=== PATIENT | male | born 1950 | race Caucasian/White ===

== ENCOUNTER 2023-11-25 17:49 | Inpatient (IN) | payer MEDICARE, OTHER, SELFPAY ==
[2023-11-25] VITALS (8 sets, daily range): BP systolic 87–122; BP diastolic 47–74; BMI 41.3; BMI 41.1
--- NOTE | 2023-11-25 15:50 | ED.GENMED ---
History of Present Illness
General
Chief Complaint: Weakness
Source: patient
Exam Limitations: none
Time Seen by Provider: 11/25/23 15:20
Travel History
Have you had any contact with someone who has COVID-19?: No
Do you have any symptoms of coronavirus? Fever > 100 degrees, chills, cough, shortness of breath, sore throat, loss of taste or smell, muscle aches, or headache?: No
History of Present Illness
History of Present Illness:
73-year-old male presents with generalized weakness. This started today. No associated chills as well. His stated he was confused today. He was in the bathroom and could not get out of the bathroom because he was weak. He has a history of
atrial fibrillation on Eliquis. notes a red and swollen right leg. He has not missed any doses of the Eliquis. No chest pain or shortness of breath. No cough. No known sick contacts. He denies headache or abdominal pain. No nausea or
vomiting. No other complaints at this time
Past History
Past History
ED Past Medical History: Arrthythmia (Atrial fibrillation), CAD, GERD, HTN, Hypercholesterolemia, NIDDM and Other (Sleep apnea with CPAP, obesity)
ED Past Surgical History: Cardiac (Angioplasty), Orthopedic (Bilateral knees replaced) and Other (Lap band)
Social History
Tobacco: Non-smoker
Alcohol: Occasional
Drug: None
Personal:
Living: with family
Employment: Employed
Family History
Family History: Negative Early CAD or Sudden
Phy Exam
Physical Exam
Physical Exam:
General: Well-developed male no acute respiratory distress
HEENT: Normocephalic atraumatic mucosa dry neck is supple
Heart: Regular rate and rhythm
Lungs: No wheeze or Rales
Abdomen is soft nontender nondistended no guarding rebound normal bowel sounds
Skin: Erythema and excessive warmth from the right lower extremity underlying edema is noted no open wounds
Neurologic exam: Alert and oriented x 3 no facial asymmetry falls asleep during exam but arouses to verbal stimuli
Course
Orders/Labs/Results
Orders:
Orders
11/25/23 15:42
0.9% Sodium Chloride 1000 ml [Nss] 1,000 ml IV BOLUS
Acetaminophen [Tylenol] 1,000 mg PO NOW STA
11/25/23 16:11
COVID-19 Antigen Urgent
Source: Nasal Swab
Complete Blood Count/With Diff Urgent
Comprehensive Metabolic Panel Urgent
Lactic Acid Q4H
Comment: CANCEL 2nd LACTIC ACID IF 1st LACTIC ACID IS LESS THAN 2
Blood Culture Q30M
CARLYN Source: Blood/Venous
Specimen Description:
Influenza A+B Rapid Molecular Urgent
CARLYN Source: Nasal Swab
Specimen Description:
11/25/23 16:15
Blood Culture Q30M
CARLYN Source: Blood/Venous
Specimen Description:
11/25/23 17:31
CeFAZolin 2 GRAM [Ancef] 2 grams in 10 ml IV NOW
11/25/23 19:45
Lactic Acid Q4H
Comment: CANCEL 2nd LACTIC ACID IF 1st LACTIC ACID IS LESS THAN 2
Abnormal Lab Results
11/25/23
16:11
WBC 15.6 H 10^3/uL
(4.8-10.8)
RBC 4.49 L 10^6/uL
(4.70-6.10)
RDW 14.7 H %
(11.5-14.5)
Abs Immat Gran (auto) 0.1 H 10^3/uL
(0-0.05)
Absolute Neuts (auto) 14.5 H 10^3/uL
(1.4-6.5)
Absolute Lymphs (auto) 0.5 L 10^3/uL
(1.2-3.4)
Immature Gran % 0.6 H %
(0-0.5)
Neutrophils % 92.6 H %
(42.2-75.2)
Lymphocytes % 3.2 L %
(20.5-51.1)
BUN 22 H mg/dl
(9-20)
Glucose 137 H mg/dl
(70-99)
Lactic Acid 2.2 H mmol/L
(0.7-2.0)
Calcium 8.1 L mg/dl
(8.4-10.2)
11/25/23 16:11
11/25/23 16:11
Vital Signs
Initial and Last Documented VS:
Initial Vital Signs
Temp Pulse Resp BP Pulse Ox
98.2 F 62 18 122/60 97
11/25/23 13:53 11/25/23 13:53 11/25/23 13:53 11/25/23 13:53 11/25/23 13:53
Last Documented Vital Signs
Temp Pulse Resp BP Pulse Ox
101.9 F H 106 21 104/61 96
11/25/23 15:43 11/25/23 17:00 11/25/23 17:00 11/25/23 17:00 11/25/23 16:45
MDM/Problems Addressed
Differential Diagnosis Includes:
Recheck temperature in room. Temperature is 101.9. Exam most consistent with cellulitis. Do not suspect DVT as patient is anticoagulated. Will initiate septic workup labs cultures flu and COVID test. Fluids ordered Tylenol ordered
*Critical Care Note
Total Time (30-74mins, 75-104mins- exclusive of procedures): Not Applicable
Update Note
Update Note:
White blood cell count 15.6. Suspect sepsis secondary to cellulitis. Will start Ancef and give fluids. Admit to hospital
ED Attending Note
-
Portions of this chart may have been created with voice recognition software.� Occasional wrong word or��sound alike� substitutions may have occurred due to the inherent limitations of voice recognition software.
Discharge Plan
Departure
Patient Disposition: Admit
Date of Disposition: 11/25/23
Time of Disposition: 17:32
Admit to: Telemetry
Presentation/result/management discussed w/ accepting MD/DO: Hospitalist
Discharge Problem:
Cellulitis
Prescriptions:
No Action
furosemide 40 MG tablet
40 mg PO BID
rosuvastatin [Crestor] 20 MG tablet
20 mg PO QPM
cyanocobalamin (vitamin B-12) 1,000 MCG tablet
1,000 mcg PO MOWEFR
omeprazole 40 MG capsule,delayed release(DR/EC)
40 mg PO BID
sotalol 80 MG tablet
80 mg PO BID Qty: 60 5RF
Eliquis 5 MG tablet
5 mg PO BID 0RF
ferrous sulfate [iron] 325 mg (65 mg iron) Tablet
65 mg PO DAILY
gabapentin 300 mg Capsule
300 mg PO BID
metoprolol tartrate 25 mg Tablet
25 mg PO BID
potassium chloride 20 mEq Tablet Extended Release
20 meq PO DAILY
levothyroxine 137 mcg Tablet
125 mcg PO DAILY
gabapentin 100 mg Capsule
100 mg PO BID
calcium carbonate-vitamin D3 600 mg-5 mcg (200 unit) Tablet
2 tab PO TID
multivitamin Tablet,Chewable
3 tab PO DAILY
Beano 400 unit Tablet
400 unit PO 6XD PRN (Reason: GAS)
Creon 6,000-19,000 -30,000 unit Capsule,Delayed Release(Dr/Ec)
1 cap PO BID
Referrals:
Sharla Santos MD [Family Provider] -
Interventions
Interventions:
*Risk Screen - Suicide Last Done: 11/25/23 15:52
*General Assessment Last Done: 11/25/23 15:52
*Neglect/Abuse Screening Last Done: 11/25/23 15:52
ED- Fall Risk Assessment Last Done: 11/25/23 15:52
*ED COVID-19 Vaccine History Last Done: 11/25/23 15:52
ED- Cardiac Assessment Last Done: 11/25/23 15:52
ED- Neurological Assessment Last Done: 11/25/23 15:52
ED- Pulmonary Assessment Last Done: 11/25/23 15:52
[2023-11-25] MEDS: NSS 1000 IV ×2 (16:17→19:46)
[2023-11-25] MEDS: TYLENOL 1000 MG PO (16:17)
[2023-11-25 16:32] LABS: % Basophils 0.3 % (0-2); % Immature Granulocytes 0.6 % (0-0.5); % Lymphocytes 3.2 % (20.5-51.1); % Monocytes 3.3 % (1.7-9.3); % Neutrophils 92.6 % (42.2-75.2); Absolute Immature Granulocytes 0.1 10^3/uL (0-0.05); Absolute Lymphocytes 0.5 10^3/uL (1.2-3.4); Absolute Monocytes 0.5 10^3/uL (0.1-0.6); Absolute Neutrophils 14.5 10^3/uL (1.4-6.5); Hematocrit 40.7 % (39.0-52.0); Hemoglobin 13.6 g/dL (13.0-18.0); Mean Corp Hgb Conc. 33.4 g/dL (33.0-37.0); Mean Corpuscular Hgb 30.3 pg (27.0-31.0); Mean Corpuscular Volume 90.6 fL (80.0-94.0); Mean Platelet Volume 10.1 fL (7.4-10.4); Nucleated Red Blood Cells % 0 % (-); Platelet Count 155 10^3/uL (130-400); Red Blood Cell Count 4.49 10^6/uL (4.70-6.10); Red Cell Dist. Width 14.7 % (11.5-14.5); White Blood Cell Count 15.6 10^3/uL (4.8-10.8)
[2023-11-25 16:42] LABS: Lactic Acid 2.2 mmol/L (0.7-2.0)
[2023-11-25 16:44] LABS: COVID-19 Antigen Negative (Negative)
[2023-11-25 16:49] LABS: ALT (SGPT) 46 U/L (0-50); AST (SGOT) 48 U/L (17-59); Alkaline Phosphatase 81 U/L (38-126); Blood Urea Nitrogen 22 mg/dl (9-20); Calcium 8.1 mg/dl (8.4-10.2); Carbon Dioxide 30 mmol/L (22-30); Estimated Creatinine Clearance 72 ml/min; Glucose 137 mg/dl (70-99); Total Bilirubin 1.2 mg/dl (0.2-1.3); Total Protein 7.7 g/dl (6.3-8.2); eGFR > 60.00
[2023-11-25 16:56] LABS: Chloride 99 mmol/L (98-107); Potassium 3.7 mmol/L (3.5-5.1); Sodium 140 mmol/L (135-145)
--- NOTE | 2023-11-25 17:36 | HPS.HSE ---
Family Physician
-
Family Physician: Sharla Santos
Chief Complaint
-
Weakness at home for 1 day duration
History of Present Illness
73 years old male presented to the emergency room with generalized weakness. History is limited as patient was weak and lethargic. Patient reported that he went to the bathroom this morning and could not go back to his room. He felt very weak and
tired. Patient denied cough, dysuria, abdominal pain or headache. In the emergency room, he had fever 101.9. Right leg was noticeably swollen and red. Patient denied tenderness upon examination but mentioned that leg looked swollen to the
emergency physician. White blood cell was 15.6. Lactic acid was elevated at 2.2. No hypotension.
Patient denied chest pain.
Medical History
Past Medical History
Past Medical History: Reports Other (Hypertension, obesity, diabetes, hypothyroidism, paroxysmal A-fib, bradycardia, GERD, obstructive sleep apnea, anemia, history of recurrent cellulitis, coronary artery disease, kidney stones,, Gonzalez's esophagus)
Past Surgical History: Reports Other (No recent major surgery)
Social History
Tobacco: Non-smoker
Alcohol: None
Drug: None
Personal:
Living: With Family
Employment: Employed ([employer])
Family History
Family History: Not pertinent
Allergies / Home Medications
Allergies reflects when Allergies were last updated in [employer].
Home Medications with original date entered in [employer]
Allergy/Medication List:
Allergies
Allergy/AdvReac Type Severity Reaction Status Date / Time
aluminum Allergy Rash Verified 11/25/23 13:53
Home Medications
furosemide 40 mg tablet 40 mg PO BID Fluid retention/Swelling 09/12/18
rosuvastatin 20 mg tablet (Crestor) 20 mg PO QPM High cholesterol 11/06/18
cyanocobalamin (vitamin B-12) 1,000 mcg tablet 1,000 mcg PO MOWEFR Supplement 07/23/20
omeprazole 40 mg capsule,delayed release 40 mg PO BID Gastrointestinal issue 07/24/20
apixaban 5 mg tablet (Eliquis) 5 mg PO BID 07/26/20
sotalol 80 mg tablet 80 mg PO BID #60 tabs 07/26/20
ferrous sulfate 325 mg (65 mg iron) tablet (iron) 65 mg PO DAILY 06/25/22
metoprolol tartrate 25 mg tablet 25 mg PO BID 06/25/22
potassium chloride 20 mEq tablet,extended release 20 meq PO DAILY 06/25/22
lwzkk-u-donqwdutfurnc 400 unit tablet (Beano) 400 unit PO 6XD PRN GAS 08/17/22
levothyroxine 137 mcg tablet 125 mcg PO DAILY 08/17/22
Calcium + Vitamin D 6 gummy PO BID 11/25/23
gabapentin 400 mg capsule 400 mg PO TID 11/25/23
riwanw-cetsahdr-pdtpdwz 12,000-38,000-60,000 unit capsule,delayed rel (Creon) 1 cap PO TID 11/25/23
multivitamin 3 tab PO DAILY 11/25/23
vitamin E 1 tab PO BID 11/25/23
Review of Systems
-
History Source: Patient
A 12 point ROS was completed and negative except as noted: Yes
Constitutional: Reports Fatigue; Denies Night Sweats
EENT: Denies Sore Throat
Respiratory: Denies Cough or Trouble Breathing
Cardiac: Denies Chest Pain or Palpitations
Abdomen/GI: Denies Abdominal Pain, Diarrhea or Bloody Stools
: Denies Dysuria, Frequency or Difficulty Voiding
Musculoskeletal: Denies Joint Pain or Joint Swelling
Skin: Denies Itching or Rash
Neurological: Denies Headache or Numbness
Endocrine: Denies Temp Intolerance
Hematologic/Lymphatic: Denies Bruising
Psych: Denies Panic Disorder
Physical Exam
Vital Signs
Vital Signs
Temp Pulse Resp BP Pulse Ox
101.9 F H 106 21 104/61 96
11/25/23 15:43 11/25/23 17:00 11/25/23 17:00 11/25/23 17:00 11/25/23 16:45
Physical Exam
General: No Apparent Distress, Obese and Other (Lethargic)
HEENT: Moist mucous membranes, Atraumatic and [place] Conjunctivae
Respiratory: Clear; No Wheezes
Cardiac: S1/S2 and Regular Rhythm
GI: Soft and Non Tender
Rectal: No Maroon Stools
Genito-urinary: No costovertebral tender
Musculoskeletal: Other (Right lower extremity swelling with erythema)
Skin: No Jaundice
Neuro: Awake and AO x 3; No Slurred Speech, Facial Droop or Tremors
Psych: No Agitated
Laboratory Results
-
11/25/23 16:11
11/25/23 16:11
Laboratory Results
Lactic Acid 2.2 mmol/L (0.7-2.0) H 11/25/23 16:11
Total Bilirubin 1.2 mg/dl (0.2-1.3) 11/25/23 16:11
AST 48 U/L (17-59) 11/25/23 16:11
ALT 46 U/L (0-50) 11/25/23 16:11
Alkaline Phosphatase 81 U/L (38-126) 11/25/23 16:11
Impression/Plan
-
73 years old male presented with weakness and was found to have fever and leukocytosis with lactic acidosis
# Sepsis, present on admission
No hypotension. Patient has fever, leukocytosis, lactic acidosis and encephalopathy
Differential diagnoses include right leg cellulitis, urinary tract infection, others
Admit the patient to the hospital
Blood culture x 2
Urinalysis and urine culture
Chest x-ray
Patient denied dysuria, respiratory symptoms, sinus pain, headache, abdominal pain, diarrhea.
Patient reported that right leg looked swollen and red as baseline but per it looked not normal. Patient seems to be lethargic and encephalopathic from fever, and can be not very oriented to himself at this point.
Will treat with empiric antibiotic including cefepime and vancomycin
MRSA screen
Trend lactic acid
Trend CBC
Monitor temperature curve and vital signs
# Toxic metabolic encephalopathy secondary to sepsis/fever.
Patient is not focal on exam although he is lethargic and slow
Monitor and continue with supportive care, treat the infection.
# History of coronary artery disease. No chest pain. No shortness of breath.
#Paroxysmal A-fib, right bundle branch block. No palpitations. Will continue with Eliquis. Will verify home medications
#Hypothyroidism, no changes intended
#Primary hypertension. Avoid hypotension. Will give mild IV fluid until fever resolves.
#Gastroesophageal reflux disease/Gonzalez's esophagus without dysplasia. Will continue with PPI.
#Obesity, status post bariatric surgery in the past. BMI 41.
# CODE STATUS, full code
Total time spent to see the patient, examine the patient on the floor, review data and lab results, discuss treatment plan with patient, ER doctor and nursing staff around 75 minutes
[2023-11-25] MEDS: ANCEF 10 IV (18:02)
[2023-11-25 19:50] LABS: Lactic Acid 2.4 mmol/L (0.7-2.0)
--- NOTE | 2023-11-25 20:02 | PHA.VAN.IN ---
Assessment
- Assessment
Renal Function: Appears similar to baseline
Concomitant Antimicrobials: CEFEPIME
- Previous Dosing Experience
Previous Regimen: 1250MG IV Q12H
Date of Regimen: 11/07/18
Provided Trough of: UNKNOWN
Provided AUC of: UNKNOWN
Patient's SCR is: Similar to previous dosing experience
Patient's weight is: Decreased compared to previous dosing experience (11/07/18 WT = 134 KG)
AUC Dosing Plan
- Dosing Variables
Dosing Weight (kg): 104.1
Dosing CrCl (ml/min): 72
Vd coefficient (L/kg): 0.5
- Empiric Dosing
Initial / Loading Dose: 2GM
Maintenance Regimen: 750MG IV Q12H
Estimated AUC (mcg*h/mL): 464
Estimated Peak (mcg*h/mL): 26.9
Estimated Trough (mcg/ml): 13.3
Estimated Half Life (H): 10.8
Pharmacokinetics Vancomycin I
- -
Patient Age: 73
Patient Sex: Male
Vancomycin Day #: 1
Indication: Skin And Soft Tissue (SEPSIS)
Requesting Provider: GABRIELLE
Height / Weight:
Height 5 ft 2.5 in
Actual Weight 104.1 kg
Pertinent Past Medical History: SWOLLEN LEGS
- Vital Signs / Lab Results
Temp Pulse Resp BP Pulse Ox
98.4 F 92 19 98/51 96
11/25/23 18:03 11/25/23 18:00 11/25/23 18:00 11/25/23 18:18 11/25/23 16:45
Lab Results - Hematology
11/25/23
16:11
WBC 15.6 H
Lab Results - Chemistry
11/25/23
16:11
BUN 22 H
Creatinine 1.0
Estimated Creat Clear 72
Albumin 4.0
11/25/23 11/25/23
16:11 19:33
Lactic Acid 2.2 H 2.4 H
Microbiology Results
11/25/23 16:11 Influenza Types A & B (ALEKSANDRA) - Final
Nasal Swab Negative for Influenza A & B, NAAT
Negative results must be combined with clinical observations
and patient history.
Nucleic Acid Amplification test (NAAT)performed on the
[employer] platform.
[2023-11-25] MEDS: ELIQUIS 5 MG PO (21:03)
[2023-11-25] MEDS: VANCOCIN 540 MG IV (21:04)
[2023-11-25] MEDS: BETAPACE 80 MG PO (21:21)
--- NOTE | 2023-11-25 21:30 | PTCARENOTE ---
Received patient from ED via stretcher. Patient ambulated from stretcher to bed with assistance and RW. Patient drowsy and falling asleep while talking at times. Arousable to voice and oriented x3. BP on admission 88/47 with HR ranging from 50s-70s.
UNIT AID made aware, parameters added for sotalol and IVF started as ordered. Oriented patient to room and placed call kuo within reach. Repeat BP 114/54 HR 88. Lactic 2.4 from previous 2.2 - UNIT AID notified and added additional lactic. Plan of care
ongoing.
[2023-11-26 00:58] LABS: Lactic Acid 2.1 mmol/L (0.7-2.0)
[2023-11-26] MEDS: TYLENOL 1000 MG PO ×3 (01:09→21:14)
[2023-11-26 01:15] LABS: Urine Albumin Negative (Neg - Trace); Urine Bilirubin Negative (Negative); Urine Character Clear (Clear); Urine Color Amber; Urine Glucose Negative (Negative); Urine Ketone Negative (Negative); Urine Leukocyte Trace (Negative); Urine Nitrite Negative (Negative); Urine Occult Blood Negative (Negative); Urine Urobilinogen Negative (Neg - 1+)
[2023-11-26 01:39] LABS: Urine Bacteria Moderate (Negative); Urine Urothelial Cell 0-2 /LPF (FEW); Urine White Cell Cast 0-2 /LPF
[2023-11-26 01:40] LABS: Urine Amorphous Seen
[2023-11-26 01:42] LABS: Urine Granular Cast 0-2 /LPF (0)
[2023-11-26 04:44] VITALS: BP 93/50
[2023-11-26] MEDS: MAXIPIME 1000 MG IV (05:15)
[2023-11-26] MEDS: VANCOCIN 150 IV (05:15)
[2023-11-26] MEDS: STERILE WATER FOR INJECTION 10 ML IV (05:15)
[2023-11-26] MEDS: NSS 1000 IV (06:03)
[2023-11-26] MEDS: SYNTHROID 137 MCG PO (06:03)
[2023-11-26 06:48] LABS: Lactic Acid 1.2 mmol/L (0.7-2.0)
[2023-11-26 06:57] LABS: Blood Urea Nitrogen 27 mg/dl (9-20); Calcium 7.5 mg/dl (8.4-10.2); Carbon Dioxide 26 mmol/L (22-30); Chloride 103 mmol/L (98-107); Estimated Creatinine Clearance 72 ml/min; Glucose 144 mg/dl (70-99); Potassium 2.9 mmol/L (3.5-5.1); Sodium 136 mmol/L (135-145); eGFR > 60.00
[2023-11-26 07:15] VITALS: BP 99/57
[2023-11-26] MEDS: ELIQUIS 5 MG PO ×2 (08:32→20:07)
[2023-11-26] MEDS: ZENPEP DELAYED RELEASE CAPSULE 1 CAPSULE PO ×3 (08:32→18:06)
[2023-11-26] MEDS: PROTONIX 40 MG PO (08:32)
--- NOTE | 2023-11-26 08:44 | CON.ID ---
Consultation
-
Date/Time Consultation Requested: 11/25/23 19:02
Date/Time Consultation Performed: 11/26/23 8:44
Requesting Provider: Dr Hutton
Performing Provider: Dr Verdugo
Reason for Consultation: Fever
Chief Complaint / Past History
Chief Complaint
Weakness at home for 1 day duration
History of Present Illness
Mr Hernandez is a 73 year old male with history of recurrent cellulitis, DM, class III obesity who presented here yesterday for weakness, lethargy and a swollen R leg. No headache, chest pain, cough, nausea, vomiting, abdominal pain.
Since arrival here tmax 101.9 orally - no further talita fevers, BP mildly hypotensive, HR normal, wbc 15.6, hgb 13.6, plt 155, L shift noted, cr 1.0, K today 2.9, t bili 1.2, ast 48, alt 46, UA minimal pyuria, covid ag neg, CXR clear lung villa,
RLE US: no dvt, blood cultures x2 in progress, influenza neg,
Past History
Additional Past Medical History:
(Atrial fibrillation), CAD, GERD, HTN, Hypercholesterolemia, NIDDM and Other (Sleep apnea with CPAP
Additional Past Surgical History:
Cardiac (Angioplasty), Orthopedic (Bilateral knees replaced) and Other (Lap band)
Allergy History:
aluminum Allergy (Verified 11/25/23 13:53)
Rash
Medications Reviewed: Yes
Social History
Tobacco: Non-Smoker
Alcohol: Occasional
Drug: None
Family History
Family History: Not Pertinent
Review of Systems
Review of Systems
General: Fever
All systems: All other systems were reviewed and were negative
Vital Signs
Temp Pulse Resp BP Pulse Ox
99.2 F 64 20 99/57 98
11/26/23 07:15 11/26/23 07:15 11/26/23 07:15 11/26/23 07:15 11/26/23 07:15
Physical Exam
Physical Exam
Constitutional: No Acute Distress, Chronically Ill and Obese
Cardiovascular: Regular Rate and S1/S2; Negative Murmur or Rub
Pulmonary: Clear and Symmetric; Negative Wheezes, Rales or Rhonchi
Gastrointestinal: Soft, Non Tender, Non Distended and Normal Bowel Sounds
Skin: Warm, Dry and Rash; Negative Jaundice
Lab / Diagnostic Study Results
11/25/23 16:11
11/26/23 06:27
Abs Immat Gran (auto) 0.1 10^3/uL (0-0.05) H 11/25/23 16:11
Absolute Neuts (auto) 14.5 10^3/uL (1.4-6.5) H 11/25/23 16:11
Absolute Lymphs (auto) 0.5 10^3/uL (1.2-3.4) L 11/25/23 16:11
Absolute Monos (auto) 0.5 10^3/uL (0.1-0.6) 11/25/23 16:11
Absolute Basos (auto) 0.0 10^3/uL (0-0.2) 11/25/23 16:11
Immature Gran % 0.6 % (0-0.5) H 11/25/23 16:11
Neutrophils % 92.6 % (42.2-75.2) H 11/25/23 16:11
Lymphocytes % 3.2 % (20.5-51.1) L 11/25/23 16:11
Monocytes % 3.3 % (1.7-9.3) 11/25/23 16:11
Eosinophils % 0.0 % (0-6) 11/25/23 16:11
Basophils % 0.3 % (0-2) 11/25/23 16:11
Lactic Acid 1.2 mmol/L (0.7-2.0) 11/26/23 06:27
Ur Squamous Epith Cells 11-15 /LPF (Few) 11/26/23 01:09
Microbiology Results
Micro:
11/26/23 01:09 Urine Culture - Pending
Urine
11/25/23 18:00 Blood Culture - Pending
Blood/Venous
11/25/23 16:11 Influenza Types A & B (ALEKSANDRA) - Final
Nasal Swab Negative for Influenza A & B, NAAT
Negative results must be combined with clinical observations
and patient history.
Nucleic Acid Amplification test (NAAT)performed on the
[employer] platform.
11/25/23 16:11 Blood Culture - Pending
Blood/Venous
Assessment / Plan
Right LE Cellulitis - nonpurulent
Class III obesity
- nonpurulent cellulitis typically caused by strep
- blood cultures x2 in progress
- cefazolin 2 gm IV q 6 hrs; stop vancomycin cefepime
- compression/elevation - emphasized to patient as important as the medications
- requesting dc hayden, in the same or better in the AM could consider discharge with kefelx 1000 mg PO QID x 7 more days, compression until edema fully resolves
Hypokalemia per IM service
--- NOTE | 2023-11-26 09:15 | W.PN.HOSP.TC ---
Today's Communication/Plan
-
.
Assessment / Plan
Assessment / Plan
Physical Exam
General: No Apparent Distress, Obese.
HEENT: Moist mucous membranes, Atraumatic and [place] Conjunctivae
Respiratory: Clear; No Wheezes
Cardiac: S1/S2 and Regular Rhythm
GI: Soft and Non Tender
Rectal: No Maroon Stools
Genito-urinary: No costovertebral tender
Musculoskeletal: Other (Right lower extremity swelling with erythema)
Skin: No Jaundice
Neuro: Awake and AO x 3; No Slurred Speech, Facial Droop or Tremors
Psych: No Agitated
73 years old male presented with weakness and was found to have fever and leukocytosis with lactic acidosis
# Sepsis, present on admission due to right leg cellulitis
No hypotension this morning, soft systolic blood pressure but its around his average at time
Afebrile since admission
More alert and back to baseline. Lactic acidosis is resolved.
Changed Abx to Ancef
Appreciate ID input.
# Hypokalemia
replace IV and oral
Recheck in AM
holding Lasix.
# Toxic metabolic encephalopathy secondary to sepsis/fever.
Resolved. More alert this morning
Order PT/OT
# History of coronary artery disease.� No chest pain.� No shortness of breath.
#Paroxysmal A-fib, right bundle branch block.� No palpitations.� Will continue with Eliquis.�c/w Sotalol.
Will get EKG
#Hypothyroidism, no changes intended
#Primary hypertension.� Avoid hypotension. Add holding BB due to soft /low Bp
Given IVF over night �
#Gastroesophageal reflux disease/Gonzalez's esophagus without dysplasia.� Will continue with PPI.
#Obesity, status post bariatric surgery in the past.� BMI 41.
# CODE STATUS, full code
Total time spent to see the patient, examine the patient on the floor, review data and lab results, discuss treatment plan with patient and nursing staff around 55 minutes
Anticipated Discharge: 24 - 48 hours
Subjective/Interval History
-
Date of Service: November 26, 2023
No chest pain
No sob
He feels better
no headache
Objective Data
-
Labs:
Laboratory Results
11/26/23
06:27
Sodium 136
Potassium 2.9 L
Chloride 103
Carbon Dioxide 26
BUN 27 H
Creatinine 1.0
Glucose 144 H
Calcium 7.5 L
Vital Signs:
Vital Signs
Temp Pulse Resp BP Pulse Ox
99.2 F 64 20 99/57 98
11/26/23 07:15 11/26/23 07:15 11/26/23 07:15 11/26/23 07:15 11/26/23 07:15
I&O
11/25/23 11/26/23 11/27/23
06:59 06:59 06:59
Intake Total 1480 / 1480
Output Total 550 / 550
Balance 930 / 930
[2023-11-26] MEDS: KCL 40 MEQ PO (09:47)
[2023-11-26] MEDS: BETAPACE 80 MG PO ×2 (09:47→20:06)
[2023-11-26] MEDS: KCL 270 MEQ IV (09:49)
[2023-11-26] MEDS: ANCEF 10 IV ×3 (09:54→21:13)
[2023-11-26 11:10] VITALS: BP 116/63
[2023-11-26 15:05] VITALS: BP 132/57
--- NOTE | 2023-11-26 16:09 | PTCARENOTE ---
Received patient this am AAOx3. Pt turned an repositioned Q 2 hrs. RLE elevated on two pillows. Lui wrap applied as ordered. LLE with pink discoloration as well. LLE elevated on pillow. 1500 patient temp 102. 6. Ice packs placed under patients
arms. Pt medicated with Tylenol PO. Dr. Brennen botello ID made aware. Re check temp -98.3. Made patient comfortable. Cont to assess patient status.
--- NOTE | 2023-11-26 16:23 | CM ---
Patient seen bedside with , Milagros, initial assessment completed. Patient falling asleep, intial assessment answered by . Per , amari resides with her and their son in a multiple story home, one step to enter, 14 steps upstairs. Per
, patient has had outpatient PT in the past and participates in [employer] programs at a gym. Milagros reports patient has been to [facility] in 2020. Milagros reports PCP Dr. Santos, pharmacy used [facility] on [address] in [place]. Milagros
reports they will be meeting with I.D. soon. CM will continue to follow for discharge planning needs.
Plan; home no needs vs VN, watch for PT eval.
--- NOTE | 2023-11-26 16:40 | W.PN.UPDATE ---
Update Note
Progress Note Update
Patient with delirium which began before presentation
Patient's delirium continued. At this moment oriented to person, place and time but having difficulties with complex scenarios (spelling world backwards for example)
felt that medications may be the cause; asked for switch. another MD switched.
I spoke with and patient; explained that medications were just started, and delirium began before the medications, delirium currently mild. Far too soon to expect a sudden improvement in the cellulitis.
Cefazolin at current dose is most likely to be effective, would not switch back to vanc/cefepime at this time.
Expressed that need bare minimum of two days of treatment before I expect significant improvement.
Clarified that hemosiderin deposition is subcuticular bleeding - not infection itsefl and may persists.
LEONARD wrap on other leg that has some venous stasis dermatitis.
[2023-11-26] MEDS: CRESTOR 20 MG PO (18:06)
[2023-11-26 19:55] VITALS: BP 108/53
[2023-11-26] MEDS: LOPRESSOR 12.5 MG PO (20:07)
[2023-11-26 23:50] VITALS: BP 103/55
[2023-11-27 03:10] VITALS: BP 96/50
[2023-11-27] MEDS: ANCEF 10 IV ×4 (04:17→22:52)
[2023-11-27] MEDS: SYNTHROID 137 MCG PO (05:23)
[2023-11-27 06:00] VITALS: BMI 42.3
[2023-11-27 06:33] LABS: % Basophils 0.3 % (0-2); % Immature Granulocytes 0.9 % (0-0.5); % Lymphocytes 4.9 % (20.5-51.1); % Monocytes 6.6 % (1.7-9.3); % Neutrophils 87.3 % (42.2-75.2); Absolute Immature Granulocytes 0.1 10^3/uL (0-0.05); Absolute Lymphocytes 0.6 10^3/uL (1.2-3.4); Absolute Monocytes 0.7 10^3/uL (0.1-0.6); Absolute Neutrophils 9.7 10^3/uL (1.4-6.5); Hematocrit 35.9 % (39.0-52.0); Hemoglobin 12.1 g/dL (13.0-18.0); Mean Corp Hgb Conc. 33.7 g/dL (33.0-37.0); Mean Corpuscular Hgb 30.3 pg (27.0-31.0); Mean Corpuscular Volume 89.8 fL (80.0-94.0); Mean Platelet Volume 10.9 fL (7.4-10.4); Nucleated Red Blood Cells % 0 % (-); Platelet Count 110 10^3/uL (130-400); White Blood Cell Count 11.1 10^3/uL (4.8-10.8)
[2023-11-27 06:54] LABS: Blood Urea Nitrogen 23 mg/dl (9-20); Calcium 7.7 mg/dl (8.4-10.2); Carbon Dioxide 26 mmol/L (22-30); Chloride 107 mmol/L (98-107); Estimated Creatinine Clearance 91 ml/min; Glucose 135 mg/dl (70-99); Potassium 3.4 mmol/L (3.5-5.1); Sodium 136 mmol/L (135-145); eGFR > 60.00
[2023-11-27 07:45] VITALS: BP 109/61
[2023-11-27] MEDS: KCL 40 MEQ PO (09:28)
[2023-11-27] MEDS: BETAPACE 80 MG PO ×2 (09:28→20:16)
[2023-11-27] MEDS: LASIX 40 MG IV ×2 (09:29→16:58)
[2023-11-27] MEDS: ELIQUIS 5 MG PO ×2 (09:29→20:16)
[2023-11-27] MEDS: PROTONIX 40 MG PO (09:29)
[2023-11-27] MEDS: ZENPEP DELAYED RELEASE CAPSULE 1 CAPSULE PO ×3 (09:29→16:58)
--- NOTE | 2023-11-27 10:31 | W.PN.HOSP.TC ---
Today's Communication/Plan
-
.
Assessment / Plan
Assessment / Plan
Physical Exam
General: No Apparent Distress, Obese.
HEENT: Moist mucous membranes, Atraumatic and [place] Conjunctivae
Respiratory: Clear; No Wheezes
Cardiac: S1/S2 and Regular Rhythm
GI: Soft and Non Tender
Rectal: No Maroon Stools
Genito-urinary: No costovertebral tender
Musculoskeletal: Other (Right lower extremity swelling with erythema)
Skin: No Jaundice
Neuro: Awake and AO x 3; No Slurred Speech, Facial Droop or Tremors
Psych: No Agitated
73 years old male presented with weakness and was found to have fever and leukocytosis with lactic acidosis
# Sepsis, present on admission due to right leg cellulitis
He is looking better. More alert, seems back to his baseline. Right leg, less swelling, discoloration c/w healing process.
No hypotension. Back on Lasix.
Afebrile since last night.
Lactic acidosis is resolved.
Changed Abx to Ancef
Appreciate ID input.
# Hypokalemia
K was 2.9, given oral and IV KCl.
K is 3.4 today, will give oral K
# Toxic metabolic encephalopathy secondary to sepsis/fever.
Resolved.
Order PT/OT
# History of coronary artery disease.� No chest pain.� No shortness of breath.
#Paroxysmal A-fib, right bundle branch block.� No palpitations.� Continue with Eliquis.�c/w Sotalol. He is on low dose BB from home.
EKG in SR.
#Hypothyroidism, no changes intended
#Primary hypertension.� Avoid hypotension. Resume his home meds Including Lasix. Pt complained of edema, not CHF, will give first dose Lasix as IV.
#Gastroesophageal reflux disease/Gonzalez's esophagus without dysplasia.� Will continue with PPI.
#Obesity, status post bariatric surgery in the past.� BMI 41.
# CODE STATUS, full code
Total time spent to see the patient, examine the patient on the floor, review data and lab results, discuss treatment plan with patient, and nursing staff around 59 minutes
Anticipated Discharge: Within 24 hours
Subjective/Interval History
-
Date of Service: November 27, 2023
Objective Data
-
Labs:
Laboratory Results
11/27/23
06:10
WBC 11.1 H
Hgb 12.1 L
Hct 35.9 L
Plt Count 110 L D
Sodium 136
Potassium 3.4 L
Chloride 107
Carbon Dioxide 26
BUN 23 H
Creatinine 0.8
Glucose 135 H
Calcium 7.7 L
Vital Signs:
Vital Signs
Temp Pulse Resp BP Pulse Ox
98.6 F 65 20 109/61 97
11/27/23 07:45 11/27/23 09:28 11/27/23 07:45 11/27/23 09:28 11/27/23 07:45
I&O
11/26/23 11/27/23 11/28/23
06:59 06:59 06:59
Intake Total 1480 / 1480 1070 / 1070
Output Total 550 / 550 1425 / 1425
Balance 930 / 930 -355 / -355
[2023-11-27 11:27] VITALS: BP 131/64
--- NOTE | 2023-11-27 12:46 | CM ---
SW met with pt and offered VN referral. Pt declined at this time.
--- NOTE | 2023-11-27 12:57 | W.PN.ID1 ---
Date of Service
Date of Service: November 27, 2023
Today's Communication
- cefazolin 2 gm IV q 6 hrs
- compression/elevation
- if the same or better in the AM could consider discharge with kefelx 1000 mg PO QID x 6 more days, compression until edema fully resolves
Assessment / Plan
Right LE Cellulitis - nonpurulent
Class III obesity
- nonpurulent cellulitis typically caused by strep
- blood cultures x2 in progress
- cefazolin 2 gm IV q 6 hrs
- compression/elevation
- if the same or better in the AM could consider discharge with kefelx 1000 mg PO QID x 6 more days, compression until edema fully resolves
Chief Complaint
-: Cellulitis
Subjective / Review of Systems
no further fevers
bp stable
leukocytosis much improved
mild thrombocytopenia today
cr normal
blood cultures no growth to date
Vital Signs / Physical Exam
Vital Signs
Vital Signs
Temp Pulse Resp BP Pulse Ox
99.1 F 58 20 131/64 97
11/27/23 11:27 11/27/23 11:27 11/27/23 11:27 11/27/23 11:27 11/27/23 11:27
Physical Exam
Constitutional: No Acute Distress
Cardiovascular: Regular Rate and S1/S2; Negative Murmur or Rub
Pulmonary: Clear and Symmetric; Negative Wheezes or Rales
Gastrointestinal: Soft, Non Tender, Non Distended and Normal Bowel Sounds
Skin: Warm, Dry and Rash (erythema persists ); Negative Jaundice
Objective Data
Lab Data
Lab Results
11/27/23 06:10
11/27/23 06:10
Estimated Creat Clear 91 ml/min 11/27/23 06:10
Lactic Acid 1.2 mmol/L (0.7-2.0) 11/26/23 06:27
Total Bilirubin 1.2 mg/dl (0.2-1.3) 11/25/23 16:11
AST 48 U/L (17-59) 11/25/23 16:11
ALT 46 U/L (0-50) 11/25/23 16:11
Alkaline Phosphatase 81 U/L (38-126) 11/25/23 16:11
Most recent labs reviewed.
Micro Results:
11/26/23 01:09 Urine Culture - Final
Urine No Significant Growth
11/25/23 18:00 Blood Culture - Preliminary
Blood/Venous No Growth in 24 hours- Final report to follow
11/25/23 16:11 Blood Culture - Preliminary
Blood/Venous No Growth in 24 hours- Final report to follow
11/25/23 16:11 Influenza Types A & B (ALEKSANDRA) - Final
Nasal Swab Negative for Influenza A & B, NAAT
Negative results must be combined with clinical observations
and patient history.
Nucleic Acid Amplification test (NAAT)performed on the
[employer] platform.
[2023-11-27 15:50] VITALS: BP 134/60
--- NOTE | 2023-11-27 15:59 | W.DCSUMMARY ---
Discharge Summary
Discharge Data
Date of Admission: 11/25/23
Date of Discharge: 11/28/23
-
Pending Results: No
Hospital Course
73 years old male presented with lethargy and weakness. Patient was having fevers at home. Patient was found to have right lower extremity cellulitis. Patient met the criteria of sepsis with lactic acidosis. Ultrasound of the leg did not show
deep venous thrombosis. Patient received intravenous antibiotics. He was followed by infectious diseases pmo consultant. Blood culture did not show any growth. Influenza and COVID test were negative. He was diagnosed with acute encephalopathy
secondary to infection. His mentation improved. He was hypotensive and his a blood pressure medications including diuretics were held. Patient received intravenous fluid with improvement of his blood pressure. Lactic acidosis resolved. Kidney
function remained stable. His blood pressure improved. He was started back on diuretic treatment. He remained hemodynamically stable. Patient was evaluated by physical therapy and recommended home health. Patient was discharged in a stable
condition.
Physical Exam
General: No Apparent Distress, Obese.
HEENT: Moist mucous membranes, Atraumatic and [place] Conjunctivae
Respiratory: Clear; No Wheezes
Cardiac: S1/S2 and Regular Rhythm
GI: Soft and Non Tender
Rectal: No Maroon Stools
Genito-urinary: No costovertebral tender
Musculoskeletal: Other ( much less right lower extremity swelling with erythema)
Skin: No Jaundice
Neuro: Awake and AO x 3; No Slurred Speech, Facial Droop or Tremors
Psych: No Agitated.
Total discharge time spent to see the patient, examine the patient on the floor, review data and lab results, discuss discharge plan with patient, and nursing staff around 65 minutes
Discharge Plan
-
Patient Disposition: Home with Home Care
Discharge Diagnosis/Procedures: Right lower extremity cellulitis
Condition: Good
Diet: As tolerated
Referrals:
Sharla Santos MD [Family Provider] - in one to two weeks
Prescriptions:
New
cephalexin 500 mg capsule
1,000 mg PO QID Qty: 48 0RF
Continued
furosemide 40 MG tablet
40 mg PO BID
rosuvastatin [Crestor] 20 MG tablet
20 mg PO QPM
cyanocobalamin (vitamin B-12) 1,000 MCG tablet
3,000 mcg PO MOWEFR
omeprazole 40 MG capsule,delayed release(DR/EC)
40 mg PO DAILY
sotalol 80 MG tablet
80 mg PO BID Qty: 60 5RF
ferrous sulfate [iron] 325 mg (65 mg iron) Tablet
325 mg PO BID
metoprolol tartrate 25 mg Tablet
25 mg PO BID
potassium chloride 20 mEq Tablet Extended Release
20 meq PO DAILY
levothyroxine 137 mcg Tablet
137 mcg PO DAILY@07
Beano 400 unit Tablet
400 unit PO 6XD PRN (Reason: GAS)
multivitamin Tablet
3 tab PO DAILY
gabapentin 400 mg capsule
400 mg PO TID
Creon 12,000-38,000 -60,000 unit capsule,delayed release(DR/EC)
1 cap PO TID
Calcium + Vitamin D
6 gummy PO BID
Patient Comments:
11/25/2023: Pt states he takes a total amount of 3000mg of Calcium
vitamin E
1 tab PO BID
Eliquis 5 MG tablet
5 mg PO BID
Discharge Orders:
Discharge Patient (As Directed); Ordered 11/28/23
Ordered By: Gonzalez Hutton
[2023-11-27] MEDS: TYLENOL 1000 MG PO (16:56)
[2023-11-27] MEDS: CRESTOR 20 MG PO (16:58)
[2023-11-27 19:55] VITALS: BP 108/57
[2023-11-27] MEDS: KCL 20 MEQ PO (20:16)
[2023-11-27 23:55] VITALS: BP 108/63
[2023-11-28 03:42] VITALS: BP 102/52
[2023-11-28] MEDS: ANCEF 10 IV ×2 (04:43→09:29)
[2023-11-28] MEDS: SYNTHROID 137 MCG PO (04:43)
[2023-11-28 04:55] VITALS: BMI 42.0
[2023-11-28 06:44] LABS: % Basophils 0.5 % (0-2); % Eosinophils 0.4 % (0-6); % Immature Granulocytes 0.8 % (0-0.5); % Lymphocytes 8.4 % (20.5-51.1); % Monocytes 10.3 % (1.7-9.3); % Neutrophils 79.6 % (42.2-75.2); Absolute Basophils 0.1 10^3/uL (0-0.2); Absolute Immature Granulocytes 0.1 10^3/uL (0-0.05); Absolute Lymphocytes 0.8 10^3/uL (1.2-3.4); Absolute Neutrophils 7.7 10^3/uL (1.4-6.5); Hematocrit 33.7 % (39.0-52.0); Hemoglobin 11.8 g/dL (13.0-18.0); Mean Corpuscular Hgb 30.4 pg (27.0-31.0); Mean Corpuscular Volume 86.9 fL (80.0-94.0); Mean Platelet Volume 11.1 fL (7.4-10.4); Nucleated Red Blood Cells % 0 % (-); Platelet Count 125 10^3/uL (130-400); Red Blood Cell Count 3.88 10^6/uL (4.70-6.10); Red Cell Dist. Width 15.1 % (11.5-14.5); White Blood Cell Count 9.7 10^3/uL (4.8-10.8)
[2023-11-28 07:09] LABS: Blood Urea Nitrogen 25 mg/dl (9-20); Calcium 7.9 mg/dl (8.4-10.2); Carbon Dioxide 28 mmol/L (22-30); Chloride 103 mmol/L (98-107); Estimated Creatinine Clearance 73 ml/min; Glucose 125 mg/dl (70-99); Potassium 3.4 mmol/L (3.5-5.1); Sodium 137 mmol/L (135-145); eGFR > 60.00
[2023-11-28 07:49] VITALS: BP 108/58
[2023-11-28 09:18] VITALS: BP 117/60; PULSE 69; O2SAT 97
[2023-11-28] MEDS: BETAPACE 80 MG PO (09:28)
[2023-11-28] MEDS: KCL 20 MEQ PO (09:28)
[2023-11-28] MEDS: ELIQUIS 5 MG PO (09:28)
[2023-11-28] MEDS: ZENPEP DELAYED RELEASE CAPSULE 1 CAPSULE PO ×2 (09:28→12:39)
[2023-11-28] MEDS: PROTONIX 40 MG PO (09:28)
[2023-11-28] MEDS: LASIX 40 MG IV (09:29)
--- NOTE | 2023-11-28 13:27 | W.PN.ID1 ---
Date of Service
Date of Service: November 28, 2023
Assessment / Plan
Right LE Cellulitis - nonpurulent
Class III obesity
- nonpurulent cellulitis typically caused by strep
- blood cultures x2 in progress
- cefazolin 2 gm IV q 6 hrs while in house
- compression/elevation
- stable for dc with kefelx 1000 mg PO QID x 5 more days, compression until edema fully resolves
Chief Complaint
-: Cellulitis
Subjective / Review of Systems
no further fevers
bp stable
leukocytosis has resolved, L shift nearly resolved
cr stable
blood cultures no growth to date
Vital Signs / Physical Exam
Vital Signs
Vital Signs
Temp Pulse Resp BP Pulse Ox
98.4 F 61 17 108/58 97
11/28/23 09:55 11/28/23 09:28 11/28/23 07:49 11/28/23 09:28 11/28/23 07:49
Physical Exam
Constitutional: No Acute Distress
Cardiovascular: Regular Rate and S1/S2; Negative Murmur or Rub
Pulmonary: Clear and Symmetric; Negative Wheezes or Rales
Gastrointestinal: Soft, Non Tender, Non Distended and Normal Bowel Sounds
Skin: Warm, Dry and Rash; Negative Jaundice
Objective Data
Lab Data
Lab Results
11/28/23 06:08
11/28/23 06:08
Estimated Creat Clear 73 ml/min 11/28/23 06:08
Lactic Acid 1.2 mmol/L (0.7-2.0) 11/26/23 06:27
Total Bilirubin 1.2 mg/dl (0.2-1.3) 11/25/23 16:11
AST 48 U/L (17-59) 11/25/23 16:11
ALT 46 U/L (0-50) 11/25/23 16:11
Alkaline Phosphatase 81 U/L (38-126) 11/25/23 16:11
Most recent labs reviewed.
Micro Results:
11/25/23 18:00 Blood Culture - Preliminary
Blood/Venous No Growth in 48 hours- Final report to follow
11/25/23 16:11 Blood Culture - Preliminary
Blood/Venous No Growth in 48 hours- Final report to follow
11/26/23 01:09 Urine Culture - Final
Urine No Significant Growth
11/25/23 16:11 Influenza Types A & B (ALEKSANDRA) - Final
Nasal Swab Negative for Influenza A & B, NAAT
Negative results must be combined with clinical observations
and patient history.
Nucleic Acid Amplification test (NAAT)performed on the
[employer] platform.
--- NOTE | 2023-11-28 14:01 | CM ---
Pt dc to home today.
Pt declines VN due to concerns of his dog at home.
Pt will dc to home with no needs identified
== END 2023-11-28 13:37 | disposition home or self-care (01) | DRG 871 ==
LOC: 4 EAST ACU 17:49
PROVIDERS: Physician Assistant; Registered Nurse; ADMITTING PHYSICIAN Internal Medicine; CONSULT PHYSICIAN Student in an Organized Health Care Education/Training Program; EMERGENCY PHYSICIAN Emergency Medicine; FAMILY PHYSICIAN Family Medicine
DX: A41.9 Sepsis, unspecified organism (principal); G92.8 Other toxic encephalopathy; L03.115 Cellulitis of right lower limb; Z68.41 Body mass index [BMI] 40.0-44.9, adult; E87.20 Acidosis, unspecified; R65.20 Severe sepsis without septic shock; I48.0 Paroxysmal atrial fibrillation; I45.10 Unspecified right bundle-branch block; E03.9 Hypothyroidism, unspecified; I10 Essential (primary) hypertension; K21.9 Gastro-esophageal reflux disease without esophagitis; K22.70 Barrett's esophagus without dysplasia; E66.01 Morbid (severe) obesity due to excess calories; E87.6 Hypokalemia; D69.6 Thrombocytopenia, unspecified; Z79.01 Long term (current) use of anticoagulants; Z11.52 Encounter for screening for COVID-19
CPT/HCPCS: 71046; 80048; 80053; 81003; 81015; 83605; 85025; 87040; 87086; 87502; 87811; 93005; 93971; 94660; 96360; 97162; 99285

== ENCOUNTER → 2023-12-20 08:55 | Outpatient (REF) | payer MEDICARE, OTHER, SELFPAY ==
[2023-12-20 10:05] LABS: % Basophils 0.8 % (0-2); % Eosinophils 1.9 % (0-6); % Immature Granulocytes 0.2 % (0-0.5); % Lymphocytes 25.5 % (20.5-51.1); % Monocytes 11.4 % (1.7-9.3); % Neutrophils 60.2 % (42.2-75.2); Absolute Eosinophils 0.1 10^3/uL (0-0.7); Absolute Lymphocytes 1.2 10^3/uL (1.2-3.4); Absolute Monocytes 0.5 10^3/uL (0.1-0.6); Absolute Neutrophils 2.9 10^3/uL (1.4-6.5); Hematocrit 35.6 % (39.0-52.0); Hemoglobin 11.6 g/dL (13.0-18.0); Mean Corp Hgb Conc. 32.6 g/dL (33.0-37.0); Mean Corpuscular Hgb 29.3 pg (27.0-31.0); Mean Corpuscular Volume 89.9 fL (80.0-94.0); Mean Platelet Volume 10.5 fL (7.4-10.4); Nucleated Red Blood Cells % 0 % (-); Platelet Count 164 10^3/uL (130-400); Red Blood Cell Count 3.96 10^6/uL (4.70-6.10); Red Cell Dist. Width 14.4 % (11.5-14.5); White Blood Cell Count 4.8 10^3/uL (4.8-10.8)
[2023-12-20 10:27] LABS: ALT (SGPT) 54 U/L (0-50); AST (SGOT) 46 U/L (17-59); Albumin 3.5 g/dl (3.5-5.0); Alkaline Phosphatase 73 U/L (38-126); Blood Urea Nitrogen 22 mg/dl (9-20); Calcium 7.8 mg/dl (8.4-10.2); Carbon Dioxide 32 mmol/L (22-30); Chloride 101 mmol/L (98-107); Glucose 113 mg/dl (70-99); HDL Cholesterol 30 mg/dl; Iron 65 ug/dl (49-181); LDL Cholesterol, Calculated 17 mg/dl; Potassium 3.1 mmol/L (3.5-5.1); Sodium 142 mmol/L (135-145); Total Bilirubin 0.5 mg/dl (0.2-1.3); Total Cholesterol 63 mg/dl (50-199); Total Protein 7.3 g/dl (6.3-8.2); Triglyceride 80 mg/dl (10-149); Very Low Density Lipoprotein 16 mg/dl (0-30); eGFR > 60.00
[2023-12-20 10:37] LABS: Percent Saturation 23 % (20-50); Total Iron Binding Capacity 277 ug/dl (261-462)
[2023-12-20 11:01] LABS: Free T4 1.78 ng/dl (0.78-2.19); Vitamin D, 25-OH*** 34.7 ng/mL (30-80)
[2023-12-20 11:14] LABS: TSH 0.79 uIU/ml (0.47-4.68)
[2023-12-20 11:18] LABS: Ferritin 50.1 ng/ml (17.9-464.0)
[2023-12-20 11:19] LABS: Microalbumin, Random Urine <0.6 mg/dl (0.6-1.7)
[2023-12-20 11:51] LABS: Folate 16.4 ng/ml (2.76-20); Vitamin B12 959 pg/ml (239-931)
[2023-12-20 13:07] LABS: Glycohemoglobin (HgbA1c) 6.3 % (4.0-5.6)
[2023-12-22 07:47] LABS: PSA Total 0.3 ng/mL (0.0-4.0)
== END ==
LOC: REG 08:55
PROVIDERS: ATTENDING PHYSICIAN Family Medicine
DX: E11.59 Type 2 diabetes mellitus with other circulatory complications (principal); D51.8 Other vitamin B12 deficiency anemias; D50.8 Other iron deficiency anemias; E03.9 Hypothyroidism, unspecified; E55.9 Vitamin D deficiency, unspecified; I25.10 Atherosclerotic heart disease of native coronary artery without angina pectoris; Z12.5 Encounter for screening for malignant neoplasm of prostate; R31.29 Other microscopic hematuria
CPT/HCPCS: 36415; 80053; 80061; 82043; 82306; 82570; 82607; 82728; 82746; 83036; 83540; 83550; 84153; 84154; 84439; 84443; 85025

== ENCOUNTER → 2024-03-15 07:48 | Outpatient (REF) | payer MEDICARE, OTHER, SELFPAY ==
[2024-03-15 08:56] LABS: % Basophils 0.7 % (0-2); % Eosinophils 3.3 % (0-6); % Immature Granulocytes 0.2 % (0-0.5); % Lymphocytes 29.3 % (20.5-51.1); % Monocytes 10.4 % (1.7-9.3); % Neutrophils 56.1 % (42.2-75.2); Absolute Eosinophils 0.1 10^3/uL (0-0.7); Absolute Lymphocytes 1.2 10^3/uL (1.2-3.4); Absolute Monocytes 0.4 10^3/uL (0.1-0.6); Absolute Neutrophils 2.4 10^3/uL (1.4-6.5); Hematocrit 38.5 % (39.0-52.0); Hemoglobin 12.5 g/dL (13.0-18.0); Mean Corp Hgb Conc. 32.5 g/dL (33.0-37.0); Mean Corpuscular Hgb 29.9 pg (27.0-31.0); Mean Corpuscular Volume 92.1 fL (80.0-94.0); Mean Platelet Volume 10.3 fL (7.4-10.4); Nucleated Red Blood Cells % 0 % (-); Platelet Count 148 10^3/uL (130-400); Red Blood Cell Count 4.18 10^6/uL (4.70-6.10); Red Cell Dist. Width 14.8 % (11.5-14.5); White Blood Cell Count 4.2 10^3/uL (4.8-10.8)
[2024-03-15 09:07] LABS: Ionized Calcium 1.02 mMOL/L (1.15-1.33)
[2024-03-15 09:14] LABS: Erythrocyte Sed Rate 44 mm/hour (0-20)
[2024-03-15 11:04] LABS: ALT (SGPT) 58 U/L (0-50); AST (SGOT) 59 U/L (17-59); Albumin 3.8 g/dl (3.5-5.0); Alkaline Phosphatase 83 U/L (38-126); Blood Urea Nitrogen 18 mg/dl (9-20); Calcium 7.9 mg/dl (8.4-10.2); Carbon Dioxide 24 mmol/L (22-30); Chloride 108 mmol/L (98-107); Direct Bilirubin 0.3 mg/dl (0.0-0.4); Glucose 106 mg/dl (70-99); HDL Cholesterol 36 mg/dl; Iron 84 ug/dl (49-181); LDL Cholesterol, Calculated 27 mg/dl; Potassium 3.9 mmol/L (3.5-5.1); Sodium 143 mmol/L (135-145); Total Bilirubin 0.4 mg/dl (0.2-1.3); Total Cholesterol 74 mg/dl (50-199); Total Protein 7.4 g/dl (6.3-8.2); Triglyceride 56 mg/dl (10-149); Very Low Density Lipoprotein 11 mg/dl (0-30); eGFR > 60.00
[2024-03-15 11:17] LABS: Intact PTH 266.4 pg/ml (13.6-85.8)
[2024-03-15 11:27] LABS: Vitamin D, 25-OH*** 40.1 ng/mL (30-80)
[2024-03-15 11:30] LABS: Percent Saturation 24 % (20-50); Total Iron Binding Capacity 347 ug/dl (261-462)
[2024-03-15 11:55] LABS: Ferritin 27.9 ng/ml (17.9-464.0)
[2024-03-15 12:17] LABS: Folate > 20.0 ng/ml (2.76-20); Vitamin B12 952 pg/ml (239-931)
[2024-03-16 17:36] LABS: Zinc 47.6 ug/dL (60.0-120.0)
[2024-03-16 21:07] LABS: Hepatitis B Surface Antigen Negative (Negative)
[2024-03-16 21:25] LABS: Hepatitis B Core Ab, Total Negative (Negative); Hepatitis B Surface Antibody Negative; Hepatitis C Antibody Negative (Negative)
[2024-03-17 21:50] LABS: Gamma-Tocopherol 0.5 mg/L (0.0-6.0); Retinyl Palmitate <0.02 mg/L (0.00-0.10); Vitamin A (Retinol) 0.51 mg/L (0.30-1.20); Xitamin A Interpretation Normal
== END ==
LOC: REG 07:48
PROVIDERS: ATTENDING PHYSICIAN Orthopaedic Surgery Adult Reconstructive Orthopaedic Surgery; FAMILY PHYSICIAN Internal Medicine Rheumatology; OTHER PHYSICIAN Nurse Practitioner Adult Health; REFERRING PHYSICIAN Family Medicine
DX: D50.8 Other iron deficiency anemias (principal); D51.8 Other vitamin B12 deficiency anemias; K22.70 Barrett's esophagus without dysplasia; E55.9 Vitamin D deficiency, unspecified; E66.01 Morbid (severe) obesity due to excess calories; G47.33 Obstructive sleep apnea (adult) (pediatric); K90.9 Intestinal malabsorption, unspecified; Z99.89 Dependence on other enabling machines and devices; R19.7 Diarrhea, unspecified; E11.9 Type 2 diabetes mellitus without complications; E56.0 Deficiency of vitamin E; I10 Essential (primary) hypertension; E78.5 Hyperlipidemia, unspecified; G62.9 Polyneuropathy, unspecified; M47.816 Spondylosis without myelopathy or radiculopathy, lumbar region; M79.641 Pain in right hand; M81.0 Age-related osteoporosis without current pathological fracture; R26.89 Other abnormalities of gait and mobility; Z51.81 Encounter for therapeutic drug level monitoring; Z96.653 Presence of artificial knee joint, bilateral
CPT/HCPCS: 36415; 80053; 80061; 82248; 82306; 82330; 82607; 82728; 82746; 83540; 83550; 83735; 83970; 84425; 84446; 84590; 84630; 85025; 85652; 86140; 86704; 86705; 86706; 86803; 87340

== ENCOUNTER → 2024-05-16 10:26 | Outpatient (REF) | payer MEDICARE, OTHER, SELFPAY ==
[2024-05-16 11:39] LABS: % Basophils 0.8 % (0-2); % Eosinophils 1.5 % (0-6); % Immature Granulocytes 0.2 % (0-0.5); % Lymphocytes 28.2 % (20.5-51.1); % Monocytes 10.9 % (1.7-9.3); % Neutrophils 58.4 % (42.2-75.2); Absolute Eosinophils 0.1 10^3/uL (0-0.7); Absolute Lymphocytes 1.5 10^3/uL (1.2-3.4); Absolute Monocytes 0.6 10^3/uL (0.1-0.6); Absolute Neutrophils 3.1 10^3/uL (1.4-6.5); Hematocrit 37.7 % (39.0-52.0); Hemoglobin 12.7 g/dL (13.0-18.0); Mean Corp Hgb Conc. 33.7 g/dL (33.0-37.0); Mean Corpuscular Hgb 31.1 pg (27.0-31.0); Mean Corpuscular Volume 92.2 fL (80.0-94.0); Mean Platelet Volume 11.3 fL (7.4-10.4); Nucleated Red Blood Cells % 0 % (-); Platelet Count 141 10^3/uL (130-400); Red Blood Cell Count 4.09 10^6/uL (4.70-6.10); Red Cell Dist. Width 14.3 % (11.5-14.5); White Blood Cell Count 5.3 10^3/uL (4.8-10.8)
[2024-05-16 12:02] LABS: Intact PTH 226.5 pg/ml (13.6-85.8)
[2024-05-16 12:04] LABS: Glycohemoglobin (HgbA1c) 5.8 % (4.0-5.6)
[2024-05-16 12:06] LABS: ALT (SGPT) 38 U/L (0-50); AST (SGOT) 35 U/L (17-59); Albumin 4.1 g/dl (3.5-5.0); Alkaline Phosphatase 88 U/L (38-126); Blood Urea Nitrogen 23 mg/dl (9-20); Calcium 8.1 mg/dl (8.4-10.2); Carbon Dioxide 27 mmol/L (22-30); Chloride 106 mmol/L (98-107); Glucose 97 mg/dl (70-99); Iron 92 ug/dl (49-181); Potassium 3.5 mmol/L (3.5-5.1); Sodium 142 mmol/L (135-145); Total Bilirubin 0.7 mg/dl (0.2-1.3); Total Protein 7.3 g/dl (6.3-8.2); eGFR > 60.00
[2024-05-16 12:20] LABS: Percent Saturation 25 % (20-50); Total Iron Binding Capacity 360 ug/dl (261-462)
[2024-05-16 12:48] LABS: TSH Reflex To Free T4 0.85 uIU/ml (0.47-4.68)
[2024-05-16 12:52] LABS: Ferritin 22.2 ng/ml (17.9-464.0)
[2024-05-16 13:07] LABS: Vitamin B12 > 1000 pg/ml (239-931)
== END ==
LOC: REG 10:26
PROVIDERS: ATTENDING PHYSICIAN Family Medicine
DX: E03.9 Hypothyroidism, unspecified (principal); E83.51 Hypocalcemia; E53.8 Deficiency of other specified B group vitamins; D50.8 Other iron deficiency anemias; E11.59 Type 2 diabetes mellitus with other circulatory complications
CPT/HCPCS: 36415; 80053; 82607; 82728; 83036; 83540; 83550; 83970; 84443; 85025

== ENCOUNTER 2024-09-21 09:34 | Emergency (ER) | payer MEDICARE, OTHER, SELFPAY ==
[2024-09-21 09:36] VITALS: BP 130/82
--- NOTE | 2024-09-21 15:13 | ED.GENMED ---
History of Present Illness
General
Chief Complaint: Dental Problem
Source: patient
Exam Limitations: none
Time Seen by Provider: 09/21/24 11:36
Nursing documentation reviewed up to this point in time: agreed with
History of Present Illness
History of Present Illness:
73-year-old male with history as documented presents for evaluation of gum bleeding. Patient had a dental extraction on Wednesday left upper incisor. He says that today at breakfast he was noticing some bleeding and spit out some clots. Bleeding is
since stopped but given that he is on Eliquis he decided to come be evaluated. He has no other issues.
Past History
Past History
ED Past Medical History: Arrthythmia (Atrial fibrillation), CAD, GERD, HTN, Hypercholesterolemia, NIDDM and Other (Sleep apnea with CPAP, obesity)
ED Past Surgical History: Cardiac (Angioplasty), Orthopedic (Bilateral knees replaced) and Other (Lap band)
Social History
Tobacco: Non-smoker
Alcohol: Occasional
Drug: None
Personal:
Living: with family
Employment: Employed
Family History
Family History: Negative Early CAD or Sudden
Review of Systems
Review of Systems
All Other Systems: ROS reviewed and negative except as documented in HPI and ROS
EENT: Reports other (Gum bleeding)
Phy Exam
Physical Exam
Physical Exam:
General: Well appearing and non-toxic
HEENT: protecting airway
Mouth: Patient has poor dentition, extraction site left upper incisor with stitch in place; hemostatic with no active bleeding
Neck: appears supple
CV: No evidence of cyanosis
Resp: No accessory muscle use
Abd: Non-distended
Extremities: No deformities
Neuro: Alert
Psych: Normal affect
Skin: Intact
Course
Vital Signs
Initial and Last Documented VS:
Initial Vital Signs
Temp Pulse Resp BP Pulse Ox
36.6 C 54 18 130/82 98
12/05/24 09:36 09/21/24 09:36 09/21/24 09:36 09/21/24 09:36 09/21/24 09:36
Last Documented Vital Signs
Temp Pulse Resp BP Pulse Ox
36.6 C 54 18 130/82 98
09/21/24 09:36 09/21/24 09:36 09/21/24 09:36 09/21/24 09:36 09/21/24 09:36
MDM/Problems Addressed
Differential Diagnosis Includes:
Gum bleeding
MDM/Problems Addressed:
73-year-old male presents after some gum bleeding�had a recent dental extraction and is on Xarelto noticed some gum bleeding today that has stopped. He was observed here in the emergency room did not have any recurrent bleeding. Stable for
discharge I spoke to him about measures to take should bleeding recur and we spoke about return precautions. Advised to continue liquid/soft diet and to avoid chewing on the left side. He feels very comfortable with this. All questions answered.
Chronic conditions affecting care:
A-fib on Xarelto complicates some bleeding
*Pulse Oximetry
Patient hypoxic: no
*Critical Care Note
Total Time (30-74mins, 75-104mins- exclusive of procedures): Not Applicable
Data Reviewed
Source: patient
ED Attending Note
-
Portions of this chart may have been created with voice recognition software.� Occasional wrong word or��sound alike� substitutions may have occurred due to the inherent limitations of voice recognition software.
Discharge Plan
Departure
Patient Disposition: Home (Routine Discharge)
Date of Disposition: 09/21/24
Time of Disposition: 11:54
Patient with high blood pressure during this ER visit?: No
Discharge Problem:
Bleeding gums
Instructions: Bleeding Gums (DC)
Prescriptions:
No Action
furosemide 40 MG tablet
40 mg PO BID
rosuvastatin [Crestor] 20 MG tablet
20 mg PO QPM
cyanocobalamin (vitamin B-12) 1,000 MCG tablet
3,000 mcg PO MOWEFR
omeprazole 40 MG capsule,delayed release(DR/EC)
40 mg PO DAILY
sotalol 80 MG tablet
80 mg PO BID Qty: 60 5RF
ferrous sulfate [iron] 325 mg (65 mg iron) Tablet
325 mg PO BID
metoprolol tartrate 25 mg Tablet
25 mg PO BID
potassium chloride 20 mEq Tablet Extended Release
20 meq PO DAILY
levothyroxine 137 mcg Tablet
137 mcg PO DAILY@07
Beano 400 unit Tablet
400 unit PO 6XD PRN (Reason: GAS)
multivitamin Tablet
3 tab PO DAILY
gabapentin 400 mg capsule
400 mg PO TID
Creon 12,000-38,000 -60,000 unit capsule,delayed release(DR/EC)
1 cap PO TID
Calcium + Vitamin D
6 gummy PO BID
Patient Comments:
11/25/2023: Pt states he takes a total amount of 3000mg of Calcium
vitamin E
1 tab PO BID
Eliquis 5 MG tablet
5 mg PO BID
cephalexin 500 mg capsule
1,000 mg PO QID Qty: 48 0RF
Referrals:
Sharla Santos MD [Family Provider] -
Activity Restrictions/Additional Instructions:
Thank you for visiting the Emergency Department at [facility].
1. Please schedule a follow up appointment as directed. Call first thing tomorrow morning to make an appointment.
2. If indicated, please take your medications as instructed and indicated on discharge paperwork.
3. If any of your symptoms do not improve, or persist, or become more severe within 6-12 hours, please return to the emergency department for further care.
4. Please return to the emergency department if you develop a headache, neck pain/stiffness, fever greater than 100.4F, chest pain, shortness of breath, persistent nausea, vomiting, slurred speech, difficulty walking, numbness/tingling, weakness,
signs of infection or any other symptoms that are worrisome to you.
Please call [phone] if you have any questions.
Interventions
Interventions:
*Risk Screen - Suicide Last Done: 09/21/24 09:36
*General Assessment Last Done: 09/21/24 09:36
*Neglect/Abuse Screening Last Done: 09/21/24 09:36
ED- Fall Risk Assessment Last Done: 09/21/24 11:55
*ED COVID-19 Vaccine History Last Done: 09/21/24 09:36
*Nursing Disposition Last Done: 09/21/24 11:55
Discharge Date and Time
Discharge Date/Time: 09/21/24 11:55
Print Language: LITHUANIAN
== END 2024-09-21 11:55 | disposition home or self-care (01) ==
LOC: EMR 09:34
PROVIDERS: EMERGENCY PHYSICIAN Emergency Medicine; FAMILY PHYSICIAN Family Medicine
DX: K06.8 Other specified disorders of gingiva and edentulous alveolar ridge (principal); I48.91 Unspecified atrial fibrillation; I25.10 Atherosclerotic heart disease of native coronary artery without angina pectoris; K21.9 Gastro-esophageal reflux disease without esophagitis; I10 Essential (primary) hypertension; E78.00 Pure hypercholesterolemia, unspecified; E11.9 Type 2 diabetes mellitus without complications; E66.9 Obesity, unspecified; G47.30 Sleep apnea, unspecified; Z79.01 Long term (current) use of anticoagulants
CPT/HCPCS: 99282

== ENCOUNTER → 2024-09-27 09:06 | Outpatient (REF) | payer MEDICARE, OTHER, SELFPAY ==
[2024-09-27 10:00] LABS: % Basophils 0.5 % (0-2); % Eosinophils 1.2 % (0-6); % Immature Granulocytes 0.4 % (0-0.5); % Lymphocytes 19.7 % (20.5-51.1); % Monocytes 8.1 % (1.7-9.3); % Neutrophils 70.1 % (42.2-75.2); Absolute Eosinophils 0.1 10^3/uL (0-0.7); Absolute Lymphocytes 1.5 10^3/uL (1.2-3.4); Absolute Monocytes 0.6 10^3/uL (0.1-0.6); Absolute Neutrophils 5.3 10^3/uL (1.4-6.5); Hematocrit 38.2 % (39.0-52.0); Hemoglobin 12.8 g/dL (13.0-18.0); Mean Corp Hgb Conc. 33.5 g/dL (33.0-37.0); Mean Corpuscular Hgb 30.6 pg (27.0-31.0); Mean Corpuscular Volume 91.4 fL (80.0-94.0); Nucleated Red Blood Cells % 0 % (-); Platelet Count 204 10^3/uL (130-400); Red Blood Cell Count 4.18 10^6/uL (4.70-6.10); Red Cell Dist. Width 14.3 % (11.5-14.5); White Blood Cell Count 7.6 10^3/uL (4.8-10.8)
[2024-09-27 11:01] LABS: Microalbumin, Random Urine 1.6 mg/dl (0.6-1.7); Microalbumin/creatinine Ratio 27.6 mg/g
[2024-09-27 11:19] LABS: ALT (SGPT) 37 U/L (0-50); AST (SGOT) 35 U/L (17-59); Albumin 4.1 g/dl (3.5-5.0); Alkaline Phosphatase 83 U/L (38-126); Blood Urea Nitrogen 23 mg/dl (9-20); Calcium 7.8 mg/dl (8.4-10.2); Carbon Dioxide 24 mmol/L (22-30); Chloride 104 mmol/L (98-107); Glucose 115 mg/dl (70-99); HDL Cholesterol 35 mg/dl; Iron 72 ug/dl (49-181); LDL Cholesterol, Calculated 16 mg/dl; Sodium 141 mmol/L (135-145); Total Bilirubin 0.6 mg/dl (0.2-1.3); Total Cholesterol 69 mg/dl (50-199); Total Protein 7.5 g/dl (6.3-8.2); Triglyceride 91 mg/dl (10-149); Very Low Density Lipoprotein 18 mg/dl (0-30); eGFR > 60.00
[2024-09-27 11:28] LABS: Percent Saturation 19 % (20-50); Total Iron Binding Capacity 363 ug/dl (261-462)
[2024-09-27 11:30] LABS: Vitamin D, 25-OH*** 37.7 ng/mL (30-80)
[2024-09-27 11:43] LABS: TSH 1.88 uIU/ml (0.47-4.68)
[2024-09-27 11:47] LABS: Ferritin 24.2 ng/ml (17.9-464.0)
[2024-09-27 12:10] LABS: Glycohemoglobin (HgbA1c) 5.9 % (4.0-5.6)
[2024-09-27 13:53] LABS: Folate > 20.0 ng/ml (2.76-20); Vitamin B12 > 1000 pg/ml (239-931)
[2024-09-30 09:02] LABS: Intact PTH 277.6 pg/ml (13.6-85.8)
== END ==
LOC: REG 09:06
PROVIDERS: ATTENDING PHYSICIAN Family Medicine
DX: D50.8 Other iron deficiency anemias (principal); E03.8 Other specified hypothyroidism; E03.9 Hypothyroidism, unspecified; E50.8 Other manifestations of vitamin A deficiency; D51.8 Other vitamin B12 deficiency anemias; E11.59 Type 2 diabetes mellitus with other circulatory complications; E78.5 Hyperlipidemia, unspecified; R79.89 Other specified abnormal findings of blood chemistry; Z79.899 Other long term (current) drug therapy
CPT/HCPCS: 36415; 80053; 80061; 82043; 82306; 82570; 82607; 82728; 82746; 83036; 83540; 83550; 83970; 84439; 84443; 85025

== ENCOUNTER 2024-10-13 09:36 | Emergency (ER) | payer MEDICARE, OTHER, SELFPAY ==
[2024-10-13] VITALS (11 sets, daily range): BP systolic 85–109; BP diastolic 55–83
[2024-10-13 10:42] LABS: % Basophils 0.5 % (0-2); % Eosinophils 0.3 % (0-6); % Immature Granulocytes 0.3 % (0-0.5); % Lymphocytes 10.7 % (20.5-51.1); % Monocytes 9.9 % (1.7-9.3); % Neutrophils 78.3 % (42.2-75.2); Absolute Lymphocytes 0.9 10^3/uL (1.2-3.4); Absolute Monocytes 0.9 10^3/uL (0.1-0.6); Absolute Neutrophils 6.8 10^3/uL (1.4-6.5); Hematocrit 42.9 % (39.0-52.0); Mean Corp Hgb Conc. 32.6 g/dL (33.0-37.0); Mean Corpuscular Hgb 29.6 pg (27.0-31.0); Mean Corpuscular Volume 90.7 fL (80.0-94.0); Mean Platelet Volume 9.6 fL (7.4-10.4); Nucleated Red Blood Cells % 0 % (-); Platelet Count 193 10^3/uL (130-400); Red Blood Cell Count 4.73 10^6/uL (4.70-6.10); White Blood Cell Count 8.7 10^3/uL (4.8-10.8)
[2024-10-13 10:47] LABS: ALT (SGPT) 40 U/L (0-50); AST (SGOT) 34 U/L (17-59); Albumin 4.3 g/dl (3.5-5.0); Alkaline Phosphatase 87 U/L (38-126); Blood Urea Nitrogen 17 mg/dl (9-20); Carbon Dioxide 28 mmol/L (22-30); Chloride 103 mmol/L (98-107); Glucose 139 mg/dl (70-99); Potassium 3.8 mmol/L (3.5-5.1); Sodium 141 mmol/L (135-145); Total Bilirubin 0.6 mg/dl (0.2-1.3); eGFR > 60.00
[2024-10-13 11:05] LABS: Troponin I < 0.012 ng/ml
[2024-10-13 11:24] LABS: TSH 1.36 uIU/ml (0.47-4.68)
--- NOTE | 2024-10-13 14:22 | ED.GENMED ---
History of Present Illness
General
Chief Complaint: Cardiac Symptoms
Source: patient and records
Exam Limitations: none
Time Seen by Provider: 10/13/24 13:36
Nursing documentation reviewed up to this point in time: agreed with
History of Present Illness
History of Present Illness:
73-year-old male with a past medical history of hypertension, CAD, CHF, atrial fibrillation on Eliquis, diabetes who presents to the emergency department for evaluation of fatigue, palpitations, shortness of breath. Patient reports that over the
past 2 to 3 days he has had some very mild shortness of breath and that his heart rate has been running higher than usual�he says he normally rests in the 50s and 60s but that recently he has been in the 90s to low 100s. He says that today he went
to work (he works the day shift at [employer]) and he felt very fatigued and unwell. 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
pain (despite triage note mentioning chest pain, he denies this to me). He says he did not feel dizzy or lightheaded and did not pass out. He says that his boss called 911 to bring him to the hospital. According to EMS on their arrival EKG showed
A-fib with PVCs. He says that he has not been in A-fib for quite some time. He says that he has been compliant with his Eliquis without any missed doses. 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 White.
Past History
Past History
ED Past Medical History: Arrthythmia (Atrial fibrillation), CAD, GERD, HTN, Hypercholesterolemia, NIDDM and Other (Sleep apnea with CPAP, obesity)
ED Past Surgical History: Cardiac (Angioplasty), Orthopedic (Bilateral knees replaced) and Other (Lap band)
Social History
Tobacco: Non-smoker
Alcohol: Occasional
Drug: None
Personal:
Living: with family
Employment: Employed
Family History
Family History: Negative Early CAD or Sudden
Review of Systems
Review of Systems
All Other Systems: ROS reviewed and negative except as documented in HPI and ROS
Constitutional: Reports fatigue; Denies fever or chills
EENT: Denies sore throat or runny nose
Respiratory: Reports trouble breathing; Denies cough
Cardiac: Reports palpitations; Denies chest pain
ABD/GI: Denies abdominal pain, nausea or vomiting
: Denies flank pain
Musculoskeletal: Denies neck pain or back pain
Neurological: Denies dizzy or headache
Phy Exam
Physical Exam
Physical Exam:
General: Awake, alert, oriented x3; no acute distress
Head: Normocephalic, atraumatic
Eyes: Conjunctiva normal, sclera anicteric, pupils equal round and reactive to light bilaterally
Throat: Airway intact, handling secretions
Neck: Trachea midline, no JVD
Lungs: Clear to auscultation bilaterally, no wheezing, rales, rhonchi
Heart: Regular rate and irregularly irregular rhythm, no murmurs, gallops, or rubs
Abd: Soft, non distended, nontender
Neuro: No gross deficit
Extremities: No edema in extremities, warm and well-perfused
Scores
Heart Failure Risk
Heart Failure Risk Score: Not Applicable
Heart Score for Chest Pain Patients
STEMI patient?: Not applicable
Withdrawal Assessment of Alcohol
Withdrawal Assessment Completed?: Not applicable
Course
Orders/Labs/Results
Orders:
Orders
10/13/24 09:46
Electrocardiogram (*1) Urgent
Reason for Study: Chest Pain
EKG- Treatment ONCE
10/13/24 10:23
Complete Blood Count/With Diff Urgent
Comprehensive Metabolic Panel Urgent
TSH Urgent
Troponin I Urgent
10/13/24 13:53
Troponin I Urgent
10/13/24 14:08
CR Chest Portable - 1 View Urgent
Comment:
Reason For Exam: sob
Reason Study Needs to be Portable: Unable to Transport
10/13/24 14:52
COVID-19 Antigen Urgent
Source: Nasal Swab
Influenza A+B Rapid Molecular Urgent
CARLYN Source: Nasal Swab
Specimen Description:
10/13/24 16:37
Propofol [Diprivan] 20 ml .ROUTE .STK-MED
10/13/24 16:53
Propofol [Diprivan] 40 mg IV NOW STA
10/13/24 16:56
EKG with chest pain [ECG as needed] As Directed
ECG as needed for:: Rhythm Change
Abnormal Lab Results
10/13/24
10:23
MCHC 32.6 L g/dL
(33.0-37.0)
Absolute Neuts (auto) 6.8 H 10^3/uL
(1.4-6.5)
Absolute Lymphs (auto) 0.9 L 10^3/uL
(1.2-3.4)
Absolute Monos (auto) 0.9 H 10^3/uL
(0.1-0.6)
Neutrophils % 78.3 H %
(42.2-75.2)
Lymphocytes % 10.7 L %
(20.5-51.1)
Monocytes % 9.9 H %
(1.7-9.3)
Glucose 139 H mg/dl
(70-99)
Calcium 8.0 L mg/dl
(8.4-10.2)
10/13/24 10:23
10/13/24 10:23
Vital Signs
Initial and Last Documented VS:
Initial Vital Signs
Temp Pulse Resp BP Pulse Ox
37.7 C 50 16 102/71 98
10/13/24 09:53 10/13/24 09:53 10/13/24 09:53 10/13/24 09:53 10/13/24 09:53
Last Documented Vital Signs
Temp Pulse Resp BP Pulse Ox
37.1 C 75 25 103/58 97
10/13/24 17:33 10/13/24 17:33 10/13/24 17:33 10/13/24 17:33 10/13/24 17:33
Procedures
Cardioversion
Indication:: Afib
Performed by:: Georges Mclean MD
Synchronized?: Yes
Energy Used: 200 joules
Number of attempts: 1
Successful?: Yes
ASA Risk Score: Class III
Any reaction or bad outcome to prior sedation/anesthesia?: No history of a reaction
Sedation level to be attained: moderate
Chart and allergies reviewed: Yes
Patient reassessed prior to sedation: Yes
Time out completed at (validating right patient & procedure): 16:53
History of difficult intubation: No
Airway free of obstruction: Yes
Patient has a gag reflex: Yes
Patient is able to open mouth: Yes
Patient has no dentures: Yes
Patient has no loose teeth: Yes
Medication administered by Provider during Moderate Sedation: IV Propofol (mg)
Total dose administered: 40
Time drug administered: 16:53
Start Time: 16:53
Stop Time: 17:03
MDM/Problems Addressed
Differential Diagnosis Includes:
Anemia, electrolyte derangement, viral syndrome, CHF, symptomatic A-fib
MDM/Problems Addressed:
73-year-old male presents for evaluation of mild shortness of breath, palpitations and weakness/malaise progressive over the past 2 to 3 days but worse this morning. He says his heart rate has been running higher than usual. Vitals and exam as
above. EKG on arrival shows A-fib with occasional PVCs. He had labs sent in triage including a CBC and a CMP which were unremarkable. Troponin undetectable. Will check a chest x-ray. Swab for flu and COVID. Wonder if his symptoms could be
related to symptomatic A-fib. His heart rates are in the 90s to low 100s. Discussed with cardiology�can offer elective ED cardioversion for symptomatic A-fib but at this point no indication for emergent cardioversion given acceptable rate in
stable patient.
Chest x-ray shows no acute disease. COVID and flu negative. Spoke with patient and offered elective cardioversion as it is at this point I think the likeliest cause for weakness (and of course palpitations) is symptomatic A-fib. He is agreeable
to ED cardioversion. Patient was consented and successfully cardioverted to sinus rhythm as documented in procedure note. He is feeling well after. Will continue to monitor after cardioversion. If he remains stable can discharge, follow-up with
cardiology as an outpatient.
Patient remains in sinus rhythm, awake and alert and feeling better after cardioversion. Stable for discharge he will follow-up with his woodworking machine feeder as an outpatient. Awaiting a ride home from his , plan for discharge.
Chronic conditions affecting care:
atrial fibrillation
*Radiology
Radiology exam reviewed: preliminary read by ED provider and radiology read reviewed
*Pulse Oximetry
Patient hypoxic: no
*EKG
Interpreted by ED Provider?: Yes
Heart Rate: 82
Rate: normal
Rhythm: a-fib and PVC's
Hope: left axis deviation
QRS Pattern: right bundle branch block
Ischemia: non-specific ST changes
*Critical Care Note
Total Time (30-74mins, 75-104mins- exclusive of procedures): Not Applicable
Data Reviewed
Review of Other/Old Records Reveals: Labs and Records
Source: patient, records and ambulance crew
Patient Management
Discussion with other providers: Briquette Molder (Discussed with cardiology)
ED Attending Note
-
Portions of this chart may have been created with voice recognition software.� Occasional wrong word or��sound alike� substitutions may have occurred due to the inherent limitations of voice recognition software.
Discharge Plan
Departure
Patient Disposition: Home (Routine Discharge)
Date of Disposition: 10/13/24
Time of Disposition: 17:33
Patient with high blood pressure during this ER visit?: No
Discharge Problem:
Atrial fibrillation status post cardioversion
Instructions: Atrial fibrillation - Discharge instructions, MODERATE SEDATION ADULT
Prescriptions:
No Action
furosemide 40 MG tablet
40 mg PO BID
rosuvastatin [Crestor] 20 MG tablet
20 mg PO QPM
omeprazole 40 MG capsule,delayed release(DR/EC)
40 mg PO DAILY
sotalol 80 MG tablet
80 mg PO BID Qty: 60 5RF
ferrous sulfate [iron] 325 mg (65 mg iron) Tablet
325 mg PO BID
metoprolol tartrate 25 mg Tablet
25 mg PO BID
potassium chloride 20 mEq Tablet Extended Release
20 meq PO DAILY
levothyroxine 137 mcg Tablet
137 mcg PO DAILY@07
gabapentin 400 mg capsule
400 mg PO TID
calcium carbonate [Calcium 500] 500 mg calcium (1,250 mg) Tablet
2,000 mg PO BID Qty: 0
vitamin E 268 mg (400 unit) Capsule
268 mg PO BID Qty: 0
Eliquis 5 MG tablet
5 mg PO BID
Theragen Tablet
4 tab PO DAILY
potassium chloride 10 mEq Tablet Extended Release
10 meq PO QPM
cholecalciferol (vitamin D3) [Vitamin D3] 50 mcg (2,000 unit) Tablet
150 mcg PO DAILY
cephalexin 500 mg capsule
500 mg PO TID
Referrals:
Manpreet White MD [Active] - Call in 1-3 days for appt
Sharla Santos MD [Family Provider] -
Activity Restrictions/Additional Instructions:
Thank you for visiting the Emergency Department at [facility].
1. Please schedule a follow up appointment as directed. Call first thing tomorrow morning to make an appointment.
2. If indicated, please take your medications as instructed and indicated on discharge paperwork.
3. If any of your symptoms do not improve, or persist, or become more severe within 6-12 hours, please return to the emergency department for further care.
4. Please return to the emergency department if you develop a headache, neck pain/stiffness, fever greater than 100.4F, chest pain, shortness of breath, persistent nausea, vomiting, slurred speech, difficulty walking, numbness/tingling, weakness,
signs of infection or any other symptoms that are worrisome to you.
Please call [phone] if you have any questions.
Interventions
Interventions:
*Risk Screen - Suicide Last Done: 10/13/24 13:55
*General Assessment Last Done: 10/13/24 13:55
*Neglect/Abuse Screening Last Done: 10/13/24 13:55
ED- Fall Risk Assessment Last Done: 10/13/24 13:54
*ED COVID-19 Vaccine History Last Done: 10/13/24 13:55
ED- Pulmonary Assessment Last Done: 10/13/24 13:54
ED- Cardiac Assessment Last Done: 10/13/24 13:54
Discharge Date and Time
Print Language: [facility] [place]
[2024-10-13 14:42] LABS: Troponin I 0.018 ng/ml
[2024-10-13 15:26] LABS: COVID-19 Antigen Negative (Negative)
[2024-10-13] MEDS: DIPRIVAN 40 MG IV (17:00)
== END 2024-10-13 18:03 | disposition home or self-care (01) ==
LOC: EMR 09:36
PROVIDERS: Emergency Medicine; EMERGENCY PHYSICIAN Emergency Medicine; FAMILY PHYSICIAN Family Medicine
DX: I48.91 Unspecified atrial fibrillation (principal); R06.02 Shortness of breath; R53.1 Weakness; R53.81 Other malaise; Z11.52 Encounter for screening for COVID-19; I45.10 Unspecified right bundle-branch block; K21.9 Gastro-esophageal reflux disease without esophagitis; I11.0 Hypertensive heart disease with heart failure; I50.9 Heart failure, unspecified; I25.10 Atherosclerotic heart disease of native coronary artery without angina pectoris; G47.30 Sleep apnea, unspecified; M81.0 Age-related osteoporosis without current pathological fracture; E11.40 Type 2 diabetes mellitus with diabetic neuropathy, unspecified; E03.9 Hypothyroidism, unspecified; E78.00 Pure hypercholesterolemia, unspecified; Z79.01 Long term (current) use of anticoagulants; Z96.653 Presence of artificial knee joint, bilateral; Z91.048 Other nonmedicinal substance allergy status; Z98.84 Bariatric surgery status; Z90.49 Acquired absence of other specified parts of digestive tract
CPT/HCPCS: 92960; 99285; 99152; 71045; 80053; 84443; 84484; 85025; 87502; 87811; 93005

== ENCOUNTER 2024-11-08 06:13 | Day surgery (SDC) | payer MEDICARE, OTHER, SELFPAY ==
[2024-11-08 08:48] VITALS: BMI 42.5
[2024-11-08 09:12] VITALS: BP 112/55
[2024-11-08 09:25] VITALS: BMI 42.5
[2024-11-08 10:04] VITALS: BP 113/68
[2024-11-08 10:15] VITALS: BP 123/65
[2024-11-08 10:23] VITALS: BP 115/75
== END 2024-11-08 10:50 | disposition home or self-care (01) ==
LOC: SDS 06:13
PROVIDERS: ATTENDING PHYSICIAN Internal Medicine Gastroenterology
DX: Z12.11 Encounter for screening for malignant neoplasm of colon (principal); D12.5 Benign neoplasm of sigmoid colon; K57.30 Diverticulosis of large intestine without perforation or abscess without bleeding; K64.8 Other hemorrhoids; Q43.8 Other specified congenital malformations of intestine; Z86.0100 Personal history of colon polyps, unspecified; Z79.01 Long term (current) use of anticoagulants
CPT/HCPCS: 45385; 88305

== ENCOUNTER → 2024-11-22 08:34 | Outpatient (REF) | payer MEDICARE, OTHER, SELFPAY ==
[2024-11-22 10:19] LABS: Erythrocyte Sed Rate 64 mm/hour (0-20)
[2024-11-24 10:27] LABS: SSA 52 (Ro)(ENA) Ab, IgG 3 AU/mL (0-40); SSA 60 (Ro)(ENA) Ab, IgG 1 AU/mL (0-40); SSB (La)(ENA) Ab, IgG 0 AU/mL (0-40)
[2024-11-24 10:53] LABS: Syphilis/T. pallidum Ab Reflex Negative (Negative)
[2024-11-24 16:51] LABS: Copper, Serum 112.4 ug/dL (70.0-140.0)
[2024-11-24 23:16] LABS: Alpha-Tocopherol 5.9 mg/L (5.5-18.0); Gamma-Tocopherol 0.5 mg/L (0.0-6.0)
[2024-11-25 00:16] LABS: Vitamin B6 Results 120.8 nmol/L (20.0-125.0)
[2024-11-25 01:31] LABS: Albumin 3.09 g/dL (3.75-5.01); Alpha 1 Globulin 0.35 g/dL (0.19-0.46); Alpha 2 Globulin 0.89 g/dL (0.48-1.05); SPEP IFE Reflex Not Done; Total Protein-Electrophoresis 7.2 g/dL (6.3-8.2)
== END ==
LOC: REG 08:34
PROVIDERS: ATTENDING PHYSICIAN Psychiatry & Neurology Neurology; FAMILY PHYSICIAN Family Medicine
DX: R77.0 Abnormality of albumin (principal); E61.0 Copper deficiency; M35.00 Sjogren syndrome, unspecified; R76.8 Other specified abnormal immunological findings in serum; R70.0 Elevated erythrocyte sedimentation rate; E53.8 Deficiency of other specified B group vitamins; G60.9 Hereditary and idiopathic neuropathy, unspecified; E08.42 Diabetes mellitus due to underlying condition with diabetic polyneuropathy
CPT/HCPCS: 36415; 82525; 84155; 84165; 84207; 84446; 85652; 86235; 86780

== ENCOUNTER → 2025-02-06 12:59 | Outpatient (REF) | payer MEDICARE, OTHER, SELFPAY | LOC: RAD 12:59 | PROVIDERS: ATTENDING PHYSICIAN Nurse Practitioner Family; FAMILY PHYSICIAN Family Medicine | DX: M79.89 Other specified soft tissue disorders (principal); R60.9 Edema, unspecified | CPT/HCPCS: 93971 ==

== ENCOUNTER → 2025-02-07 13:40 | Outpatient (REF) | payer MEDICARE, OTHER, SELFPAY ==
[2025-02-07 14:39] LABS: Uric Acid 9.5 mg/dl (3.5-8.5)
== END ==
LOC: REG 13:40
PROVIDERS: ATTENDING PHYSICIAN Nurse Practitioner Family; FAMILY PHYSICIAN Family Medicine
DX: E79.0 Hyperuricemia without signs of inflammatory arthritis and tophaceous disease (principal); M79.89 Other specified soft tissue disorders
CPT/HCPCS: 36415; 84550

== ENCOUNTER → 2025-02-28 09:39 | Outpatient (REF) | payer MEDICARE, OTHER, SELFPAY ==
[2025-02-28 11:33] LABS: % Basophils 0.7 % (0-2); % Eosinophils 1.4 % (0-6); % Immature Granulocytes 0.4 % (0-0.5); % Lymphocytes 25.7 % (20.5-51.1); % Monocytes 10.7 % (1.7-9.3); % Neutrophils 61.1 % (42.2-75.2); Absolute Eosinophils 0.1 10^3/uL (0-0.7); Absolute Lymphocytes 1.4 10^3/uL (1.2-3.4); Absolute Monocytes 0.6 10^3/uL (0.1-0.6); Absolute Neutrophils 3.4 10^3/uL (1.4-6.5); Hematocrit 39.4 % (39.0-52.0); Hemoglobin 12.5 g/dL (13.0-18.0); Mean Corp Hgb Conc. 31.7 g/dL (33.0-37.0); Mean Corpuscular Hgb 28.4 pg (27.0-31.0); Mean Corpuscular Volume 89.5 fL (80.0-94.0); Mean Platelet Volume 11.3 fL (7.4-10.4); Nucleated Red Blood Cells % 0 % (-); Platelet Count 178 10^3/uL (130-400); Red Cell Dist. Width 15.7 % (11.5-14.5); White Blood Cell Count 5.5 10^3/uL (4.8-10.8)
[2025-02-28 11:35] LABS: Calcium 7.6 mg/dl (8.4-10.2)
[2025-02-28 11:37] LABS: Glycohemoglobin (HgbA1c) 6.1 % (4.0-5.6)
[2025-02-28 11:38] LABS: ALT (SGPT) 26 U/L (0-50); AST (SGOT) 25 U/L (17-59); Alkaline Phosphatase 98 U/L (38-126); Blood Urea Nitrogen 20 mg/dl (9-20); Calcium 7.7 mg/dl (8.4-10.2); Carbon Dioxide 28 mmol/L (22-30); Chloride 108 mmol/L (98-107); Glucose 102 mg/dl (70-99); HDL Cholesterol 29 mg/dl; Iron 72 ug/dl (49-181); LDL Cholesterol, Calculated 18 mg/dl; Potassium 3.6 mmol/L (3.5-5.1); Sodium 145 mmol/L (135-145); Total Bilirubin 0.7 mg/dl (0.2-1.3); Total Cholesterol 71 mg/dl (50-199); Total Protein 7.8 g/dl (6.3-8.2); Triglyceride 120 mg/dl (10-149); Very Low Density Lipoprotein 24 mg/dl (0-30); eGFR > 60.00
[2025-02-28 11:46] LABS: Free T4 1.48 ng/dl (0.78-2.19); Vitamin D, 25-OH*** 35.5 ng/mL (30-80)
[2025-02-28 11:52] LABS: Uric Acid 9.2 mg/dl (3.5-8.5)
[2025-02-28 11:59] LABS: Intact PTH 276.9 pg/ml (13.6-85.8)
[2025-02-28 12:00] LABS: TSH 0.41 uIU/ml (0.47-4.68)
[2025-02-28 12:44] LABS: Ferritin 18.4 ng/ml (17.9-464.0)
== END ==
LOC: REG 09:39
PROVIDERS: ATTENDING PHYSICIAN Internal Medicine Cardiovascular Disease; FAMILY PHYSICIAN Family Medicine
DX: I48.0 Paroxysmal atrial fibrillation (principal); E83.51 Hypocalcemia; N25.81 Secondary hyperparathyroidism of renal origin; M10.472 Other secondary gout, left ankle and foot; D50.8 Other iron deficiency anemias; E55.9 Vitamin D deficiency, unspecified; E03.9 Hypothyroidism, unspecified; E11.59 Type 2 diabetes mellitus with other circulatory complications; I25.10 Atherosclerotic heart disease of native coronary artery without angina pectoris
CPT/HCPCS: 36415; 80053; 80061; 82306; 82728; 83036; 83540; 83970; 84439; 84443; 84550; 85025

== ENCOUNTER → 2025-03-15 10:20 | Outpatient (REF) | payer MEDICARE, OTHER, SELFPAY | LOC: RCS 10:20 | PROVIDERS: ATTENDING PHYSICIAN Internal Medicine Cardiovascular Disease; FAMILY PHYSICIAN Family Medicine | DX: I48.0 Paroxysmal atrial fibrillation (principal); R60.0 Localized edema | CPT/HCPCS: 93306 ==

== ENCOUNTER → 2025-04-15 10:44 | Outpatient (REF) | payer MEDICARE, OTHER, SELFPAY | LOC: PAVMRI 10:44 | PROVIDERS: ATTENDING PHYSICIAN Internal Medicine Rheumatology; FAMILY PHYSICIAN Family Medicine | DX: M06.9 Rheumatoid arthritis, unspecified (principal) | CPT/HCPCS: 73218 ==

== ENCOUNTER → 2025-04-17 07:48 | Outpatient (REF) | payer MEDICARE, OTHER, SELFPAY | LOC: RAD 07:48 | PROVIDERS: ATTENDING PHYSICIAN Internal Medicine Rheumatology; FAMILY PHYSICIAN Family Medicine | DX: M81.0 Age-related osteoporosis without current pathological fracture (principal); Z13.820 Encounter for screening for osteoporosis | CPT/HCPCS: 77080 ==

== ENCOUNTER → 2025-06-11 09:08 | Outpatient (REF) | payer MEDICARE, OTHER, SELFPAY ==
[2025-06-11 11:03] LABS: Hematocrit 37.6 % (39.0-52.0); Hemoglobin 12.2 g/dL (13.0-18.0); Mean Corp Hgb Conc. 32.4 g/dL (33.0-37.0); Mean Corpuscular Volume 92.6 fL (80.0-94.0); Nucleated Red Blood Cells % 0 % (-); Platelet Count 187 10^3/uL (130-400); Red Cell Dist. Width 15.1 % (11.5-14.5)
[2025-06-11 11:32] LABS: C-Reactive Protein < 5.00 mg/L (0.0-10.00)
[2025-06-11 11:35] LABS: ALT (SGPT) 33 U/L (0-50); AST (SGOT) 35 U/L (17-59); Albumin 4.2 g/dl (3.5-5.0); Alkaline Phosphatase 96 U/L (38-126); Blood Urea Nitrogen 19 mg/dl (9-20); Calcium 7.7 mg/dl (8.4-10.2); Carbon Dioxide 30 mmol/L (22-30); Chloride 104 mmol/L (98-107); Glucose 112 mg/dl (70-99); HDL Cholesterol 32 mg/dl; Iron 83 ug/dl (49-181); LDL Cholesterol, Calculated 18 mg/dl; Potassium 3.9 mmol/L (3.5-5.1); Sodium 142 mmol/L (135-145); Total Protein 7.9 g/dl (6.3-8.2); Uric Acid 6.6 mg/dl (3.5-8.5); Very Low Density Lipoprotein 23 mg/dl (0-30); eGFR > 60.00
[2025-06-11 11:44] LABS: Total Iron Binding Capacity 390 ug/dl (261-462)
[2025-06-11 11:51] LABS: Vitamin D, 25-OH*** 38.8 ng/mL (30-80)
[2025-06-11 11:56] LABS: Glycohemoglobin (HgbA1c) 5.6 % (4.0-5.6)
[2025-06-11 12:04] LABS: TSH 1.92 uIU/ml (0.47-4.68)
[2025-06-11 12:08] LABS: Ferritin 17.9 ng/ml (17.9-464.0)
[2025-06-11 13:06] LABS: PSA, Total - Screen 0.25 ng/ml (0.0-4.0)
[2025-06-11 15:30] LABS: Rheumatoid Agglutinin Less Than 10 IU (<10 IU)
[2025-06-13 01:52] LABS: CCP Antibody IgG/IgA 4 Units (0-19)
== END ==
LOC: REG 09:08
PROVIDERS: ATTENDING PHYSICIAN Internal Medicine Rheumatology; FAMILY PHYSICIAN Family Medicine
DX: I25.10 Atherosclerotic heart disease of native coronary artery without angina pectoris (principal); I48.0 Paroxysmal atrial fibrillation; E03.9 Hypothyroidism, unspecified; D50.8 Other iron deficiency anemias; M10.472 Other secondary gout, left ankle and foot; E55.9 Vitamin D deficiency, unspecified; E83.51 Hypocalcemia; E11.59 Type 2 diabetes mellitus with other circulatory complications; Z12.5 Encounter for screening for malignant neoplasm of prostate; G62.9 Polyneuropathy, unspecified; M06.9 Rheumatoid arthritis, unspecified; M1A.09X0 Idiopathic chronic gout, multiple sites, without tophus (tophi); M45.9 Ankylosing spondylitis of unspecified sites in spine; M47.816 Spondylosis without myelopathy or radiculopathy, lumbar region; M79.641 Pain in right hand; M81.0 Age-related osteoporosis without current pathological fracture; R26.89 Other abnormalities of gait and mobility; Z51.81 Encounter for therapeutic drug level monitoring; Z96.653 Presence of artificial knee joint, bilateral
CPT/HCPCS: 36415; 80053; 80061; 82306; 82728; 83036; 83540; 83550; 83970; 84439; 84443; 84550; 85025; 85652; 86140; 86200; 86430; G0103

== ENCOUNTER → 2025-06-25 10:14 | Outpatient (REF) | payer MEDICARE, OTHER, SELFPAY ==
[2025-06-25 11:33] LABS: ALT (SGPT) 55 U/L (0-50); AST (SGOT) 39 U/L (17-59); Albumin 4.0 g/dl (3.5-5.0); Alkaline Phosphatase 90 U/L (38-126); Blood Urea Nitrogen 23 mg/dl (9-20); Calcium 8.1 mg/dl (8.4-10.2); Carbon Dioxide 33 mmol/L (22-30); Chloride 103 mmol/L (98-107); Glucose 103 mg/dl (70-99); Potassium 3.8 mmol/L (3.5-5.1); Sodium 142 mmol/L (135-145); Total Protein 7.4 g/dl (6.3-8.2); eGFR > 60.00
== END ==
LOC: REG 10:14
PROVIDERS: ATTENDING PHYSICIAN Physician Assistant; FAMILY PHYSICIAN Family Medicine
DX: E83.52 Hypercalcemia (principal); E34.9 Endocrine disorder, unspecified
CPT/HCPCS: 36415; 80053; 82330; 83970

== ENCOUNTER → 2025-06-26 12:02 | Outpatient (REF) | payer MEDICARE, OTHER, SELFPAY ==
[2025-06-26 15:38] LABS: 24 Hour Urine Total Volume 1400 ml
== END ==
LOC: REG 12:02
PROVIDERS: ATTENDING PHYSICIAN Physician Assistant; FAMILY PHYSICIAN Family Medicine; REFERRING PHYSICIAN Internal Medicine Rheumatology
DX: E83.52 Hypercalcemia (principal); E34.9 Endocrine disorder, unspecified
CPT/HCPCS: 81050; 82340; 82570

== ENCOUNTER → 2025-07-20 09:29 | Outpatient (REF) | payer MEDICARE, OTHER, SELFPAY | LOC: DHVS 09:29 | PROVIDERS: ATTENDING PHYSICIAN Nurse Practitioner Family; FAMILY PHYSICIAN Family Medicine | DX: M79.89 Other specified soft tissue disorders (principal); R60.0 Localized edema | CPT/HCPCS: 93971 ==